=== PATIENT | female | born 1935 | race Caucasian/White ===

== ENCOUNTER 2016-07-03 09:56 | Inpatient (IN) ==
[2016-07-03] MEDS ORDERED: D50W SYRINGE IV PRN (12:11)
--- NOTE | 2016-07-03 13:18 | EKG Report ---
Test Performed on : 07/03/2016 1:01:27 PM Test Reason : dehydration Blood Pressure : / mmHG Vent. Rate : 068 BPM Atrial Rate : 068 BPM P-R Int : 000 ms QRS Dur : 138 ms QT Int : 482 ms P-R-T Axes : 000 090 030 degrees QTc Int : 512 ms Normal sinus rhythm. with marked sinus arrhythmia. Rightward axis Nonspecific intraventricular block Abnormal ECG When compared with ECG of 05-JUN-2016 13:14, sinus arrthmia not present Confirmed by Jose Cage MD ([id number]) on 07/04/2016 4:30:14 AM
[2016-07-03 13:37] LABS: MANUAL DIFF NEEDED? NO
[2016-07-03] MEDS: NS + KCL 20 MEQ 1,000 ML IV SCH (13:44)
[2016-07-03] MEDS: SODIUM CHLORIDE 0.9% INJ SCH (13:44)
[2016-07-03] MEDS: PROTONIX IV SCH (13:44)
[2016-07-03 13:49] LABS: BASO% 0.1 % (0.0-0.8); EOS# 0.03 X1000 (0.0-0.7); EOS% 0.3 % (0.0-10.0); HEMATOCRIT 39.3 % (37.0-47.0); HEMOGLOBIN 12.6 g/dL (12.0-16.0); IMM GRAN# 0.02 X1000 (0.0-0.04); IMM GRAN% 0.2 % (0.0-0.5); LYMPH# 3.05 X1000 (1.2-3.4); LYMPH% 31.3 % (20.5-51.1); MCH 27.5 PG (27-31); MCHC 32.1 g/dL (33-37); MCV 85.6 FL (81-99); MONO# 0.71 X1000 (0.11-0.59); MONO% 7.3 % (1.7-9.3); MPV 10.6 FL (7.4-10.4); NEUT% 60.8 % (42.2-75.2); PLT 261 X1000 (130-400); RBC 4.59 XMIL (4.2-5.4)
[2016-07-03 13:59] LABS: INR 1.11; PROTIME 11.7 Seconds (9.2-11.7)
[2016-07-03 14:00] LABS: PTT HEPARIN PROTOCOL 26.3 Seconds
[2016-07-03 14:09] LABS: ALBUMIN 4.2 g/dL (3.5-5.0); POTASSIUM 3.7 mmol/L (3.5-5.1); TOTAL BILIRUBIN 0.46 mg/dL (0.20-1.00); TOTAL PROTEIN 7.1 g/dL (6.3-8.3)
--- NOTE | 2016-07-03 16:07 | Diag Imaging Result Document ---
PROCEDURE NAME: ABDOMEN FLAT/UPRIGHT - 07/03/2016 SUPINE AND UPRIGHT ABDOMEN: FINDINGS: Compared with 05/19/2013. The bowel gas pattern appears nonspecific and nonobstructive. The right hemidiaphragm is not entirely included on the upright view but there is no obvious free air seen. There are surgical clips at the right upper quadrant. IMPRESSION: Nonspecific bowel gas pattern.
[2016-07-03] MEDS: LEVEMIR SUBQ SCH (16:32)
[2016-07-03] MEDS: HUMALOG SUBQ SCH ×2 (16:33→21:22)
--- NOTE | 2016-07-03 17:12 | HISTORY AND PHYSICAL ---
CHIEF COMPLAINT: Diarrhea and weakness. HISTORY OF PRESENT ILLNESS: Ms. Shaffer is an 81-year-old white female patient, not doing well the last 3 to 4 days, complaining of diarrhea multiple times, watery stool. No blood or mucus in it. The patient claimed every time she eats she has a bowel movement. The patient was feeling weak. She was getting dizzy when she tries to get up. The patient does have longstanding diabetes complicated by neuropathy. The patient had an episode of hypoglycemia. I did cut back her insulin. Still the patient's blood sugar was staying low. The patient came to the office for evaluation. The patient has lost about 9 pounds of weight. I evaluated the patient. The patient is high risk for hypoglycemia with fall. Clinically, the patient did have clinical dehydration, and I decided to admit her for further care. The patient claims to be nervous, anxious, and weak. The patient had some chills, but no fever, and had a mild cough with expectoration. The patient did have nausea, but no vomiting. No typical chest pain. Occasional palpitations. No abdominal distention. No dysuria or hematuria. No vaginal discharge, spotting, bleeding. Nobody else in the family is sick with similar illness. The patient was anxious and nervous. The patient's son was in correction, and he came out and was asking the patient for money and bothering her, which was making her nervous, but that son is back in the correction now. The patient does have chronic low back pain, being followed up by the Pain [facility], on pain medication. The patient did not run out of her pain medication. No vaginal discharge, spotting, bleeding. No leg swelling. No further history available at this time. ALLERGIES: The patient is allergic to meperidine. HOME MEDICATIONS: Her home medications include, the patient is on Xanax, Eliquis, Invokana, Lexapro, Lasix, Neurontin, Davin, NovoLog, Levemir, Synthroid, Cozaar, beta-galdino, Robaxin, Prilosec, Mirapex. PAST MEDICAL HISTORY: Restless legs syndrome, gastritis, hypertension, chronic low back pain, hypothyroidism, insulin-dependent diabetes mellitus, peripheral neuropathy, situational depression, anxiety, paroxysmal atrial fibrillation, cirrhosis of the liver. PERSONAL HISTORY: Single. Nonsmoker. Denied alcohol or substance abuse. FAMILY HISTORY: Noncontributory. PHYSICAL EXAMINATION: GENERAL: An elderly white female patient, in mild distress. VITAL SIGNS: Blood pressure 148/59, pulse 82, respiration 18, temperature 98.4 degrees. SKIN: Senile turgor. HEENT: Head atraumatic, normocephalic. [place] conjunctivae. Anicteric sclerae. Extraocular muscle movement normal. Fundus cannot be penetrated. Good oral hygiene. Dry oral mucosa. No tonsillopharyngeal congestion. Ears and nose benign. NECK: Supple. No JVD, thyromegaly, or lymphadenopathy. CHEST: Bilateral good air entry present. No rales or rhonchi. CARDIOVASCULAR: S1 and S2 heard. A 2/6 systolic murmur at the apex. No gallop or thrill. ABDOMEN: Soft, globular. Bowel sounds present. Nontender. EXTREMITIES: No cyanosis, clubbing. No acute DVT. CENTRAL NERVOUS SYSTEM: Alert, awake, able to move all 4 limbs. LABORATORY DATA: Revealed hemoglobin 12.6, hematocrit 39.3, platelet count 261,000, WBC count 9.76. PT and PTT normal. Blood sugar was 210. TSH 5.4. Amylase and lipase were normal. CONSIDERATIONS: The patient admitted with: 1. Severe diarrhea. 2. Clinical dehydration. 3. Diabetes mellitus. 4. She does have hypertension. 5. Hyperlipidemia. 6. Gastritis and reflux disease. 7. Chronic low back pain. 8. Anxiety. 9. She does have a history suggestive of cirrhosis of the liver. 10. Gastroparesis. PLAN: Admit the patient. IV hydration. GI prophylaxis. As the patient is on Eliquis for atrial fibrillation, I am going to stop Lovenox. Empirically, I am going to start the patient on Flagyl after we collect the stool specimen. Fall precaution. The patient was getting dizzy even when I tried to sit her up on the examination table in my office. The overall plan was discussed at length with the patient, and she is in agreement. Watch her for hypoglycemia and fluid overload. Her abdominal x-ray results reviewed. cc: Damon Jennings MD
[2016-07-03] MEDS: MIRAPEX PO SCH (18:06)
[2016-07-03] MEDS: ZOFRAN IV PRN (18:27)
[2016-07-03] MEDS: NORCO-7.5 PO PRN (20:43)
[2016-07-03] MEDS: NEURONTIN PO SCH (20:43)
[2016-07-03] MEDS: ELIQUIS PO SCH (20:43)
[2016-07-03] MEDS: ROBAXIN PO SCH (20:43)
[2016-07-04] MEDS: NS + KCL 20 MEQ 1,000 ML IV SCH ×3 (00:37→22:25)
[2016-07-04] MEDS: NORCO-7.5 PO PRN ×3 (02:23→22:26)
[2016-07-04 05:48] LABS: MANUAL DIFF NEEDED? NO
[2016-07-04 05:51] LABS: BASO% 0.1 % (0.0-0.8); EOS# 0.02 X1000 (0.0-0.7); EOS% 0.3 % (0.0-10.0); HEMATOCRIT 37.7 % (37.0-47.0); HEMOGLOBIN 11.7 g/dL (12.0-16.0); IMM GRAN# 0.02 X1000 (0.0-0.04); IMM GRAN% 0.3 % (0.0-0.5); LYMPH# 2.64 X1000 (1.2-3.4); LYMPH% 35.5 % (20.5-51.1); MCV 86.9 FL (81-99); MONO# 0.51 X1000 (0.11-0.59); MONO% 6.9 % (1.7-9.3); MPV 10.2 FL (7.4-10.4); NEUT% 56.9 % (42.2-75.2); PLT 246 X1000 (130-400); RBC 4.34 XMIL (4.2-5.4)
[2016-07-04] MEDS: XANAX PO PRN ×3 (05:53→22:27)
[2016-07-04 06:07] LABS: AGAP 10; ALBUMIN 3.7 g/dL (3.5-5.0); ALKALINE PHOSPHATASE 235 U/L (32-104); BUN 11 mg/dL (8-22); CALCIUM 8.2 mg/dL (8.8-10.2); CHLORIDE 106 mmol/L (98-107); COSMO 287; GOT 40 U/L (10-30); GPT 19 U/L (10-36); POTASSIUM 4.3 mmol/L (3.5-5.1); SODIUM 142 mmol/L (136-145); TCO2 26 mmol/L (25-35); TOTAL BILIRUBIN 0.36 mg/dL (0.20-1.00); TOTAL PROTEIN 6.7 g/dL (6.3-8.3)
[2016-07-04 06:08] LABS: HEMOGLOBIN A1C 7.4 % (4.8-6.0)
[2016-07-04] MEDS: HUMALOG SUBQ SCH ×4 (06:23→22:41)
[2016-07-04] MEDS: ZOFRAN IV PRN (06:25)
[2016-07-04 06:47] LABS: FREE T4 1.35 ng/dL (0.93-1.70)
[2016-07-04 07:05] LABS: URINE SOURCE CLEAN CATCH
[2016-07-04 07:08] LABS: BILIRUBIN URINE NEGATIVE (NEGATIVE); BLOOD URINE NEGATIVE (NEGATIVE); COLOR YELLOW; GLUCOSE URINE TRACE mg/dL (NEGATIVE); LEUKOCYTES URINE SMALL (NEGATIVE); NITRITE URINE NEGATIVE (NEGATIVE); PROTEIN URINE 50 mg/dL (NEGATIVE); SP GRAVITY URINE 1.034; TURBIDITY URINE HAZY (CLEAR); UROBILINOGEN URINE NORMAL (NORMAL)
[2016-07-04 07:09] LABS: URINE MICRO REVIEW NEEDED? YES
[2016-07-04 07:10] LABS: UR EPITHELIAL CELLS <10 /HPF (<10); URINE BACTERIA 4+ /HPF; URINE CULTURE NEEDED? YES; URINE RBC <10 /HPF (<10)
[2016-07-04 07:17] LABS: URINE CASTS NONE SEEN; URINE CRYSTALS NONE SEEN; URINE SMALL ROUND CELLS NONE SEEN
[2016-07-04] MEDS: COZAAR PO SCH (10:02)
[2016-07-04] MEDS: ELIQUIS PO SCH ×2 (10:03→20:10)
[2016-07-04] MEDS: LEVEMIR SUBQ SCH (10:04)
[2016-07-04] MEDS: INVOKANA PO SCH (10:04)
[2016-07-04] MEDS: LEXAPRO PO SCH (10:05)
[2016-07-04] MEDS: LOVENOX SUBQ SCH (10:05)
[2016-07-04] MEDS: MIRAPEX PO SCH ×3 (10:05→16:08)
[2016-07-04] MEDS: NEURONTIN PO SCH ×2 (10:06→20:11)
[2016-07-04] MEDS: ROBAXIN PO SCH ×2 (10:08→20:10)
[2016-07-04] MEDS: SYNTHROID PO SCH (10:09)
[2016-07-04] MEDS: TOPROL XL PO SCH (10:09)
--- NOTE | 2016-07-04 10:25 | PROGRESS NOTE ---
DATE: 07/04/2016 SUBJECTIVE: Ms. Shaffer is feeling some better. The patient had 5 loose bowel movements last night. This morning she went once. She denied any high-grade fever. The patient did have some chills. Her nausea seems to be getting better. Stool workup is negative. Urinalysis did show evidence of UTI. No typical chest pain. OBJECTIVE: Vital Signs: Her vital signs are noted. The patient is afebrile. Neck: Supple. No JVD. Lungs: Bilateral good air entry present. Cardiovascular: S1 and S2 heard. Abdomen: Soft, globular. Bowel sounds present. Extremities: No cyanosis, clubbing. No acute DVT. Central Nervous System: Alert, awake, able to move all 4 limbs. LABORATORY DATA: The lab data done today, WBC count 7.44, hemoglobin 11.7, hematocrit 37.7, platelet count 246,000. Electrolytes fairly benign. LFT results reviewed. Urinalysis did show leukocyte small, 10 to 20 WBCs, and 4+ bacteria suggestive of UTI. I am going to start the patient on Levaquin. Stool workup negative. TSH and free T4 results reviewed. CONSIDERATIONS: 1. Urinary tract infection. 2. Gastroenteritis. 3. Clinical dehydration. 4. Diabetes mellitus. PLAN: Her Accu-Chek results reviewed. Hemoglobin A1c was 7.4. I am going to advance diet and continue the rest of the treatment and close observation. cc: Damon Jennings MD
[2016-07-04] MEDS: QUESTRAN LIGHT PO SCH ×2 (11:40→20:10)
[2016-07-04] MEDS: ROCEPHIN 1 GM/NS 1 GM/50 ML IVPB IV SCH (11:40)
[2016-07-04] MEDS: PROTONIX IV SCH (12:01)
[2016-07-04] MEDS: SODIUM CHLORIDE 0.9% INJ SCH (12:02)
[2016-07-05] MEDS: NORCO-7.5 PO PRN ×3 (04:34→22:18)
[2016-07-05] MEDS: NS + KCL 20 MEQ 1,000 ML IV SCH ×2 (05:36→17:46)
[2016-07-05] MEDS: LOVENOX SUBQ SCH (05:42)
[2016-07-05 06:00] LABS: MANUAL DIFF NEEDED? NO
[2016-07-05 06:03] LABS: BASO% 0.1 % (0.0-0.8); EOS# 0.08 X1000 (0.0-0.7); EOS% 0.9 % (0.0-10.0); HEMATOCRIT 36.6 % (37.0-47.0); HEMOGLOBIN 11.1 g/dL (12.0-16.0); LYMPH# 2.15 X1000 (1.2-3.4); LYMPH% 23.8 % (20.5-51.1); MCH 26.8 PG (27-31); MCHC 30.3 g/dL (33-37); MCV 88.4 FL (81-99); MONO# 0.56 X1000 (0.11-0.59); MONO% 6.2 % (1.7-9.3); MPV 10.2 FL (7.4-10.4); PLT 222 X1000 (130-400); RBC 4.14 XMIL (4.2-5.4)
[2016-07-05 06:30] LABS: AGAP 7; ALBUMIN 3.5 g/dL (3.5-5.0); ALKALINE PHOSPHATASE 225 U/L (32-104); BUN 9 mg/dL (8-22); CALCIUM 8.3 mg/dL (8.8-10.2); CHLORIDE 109 mmol/L (98-107); COSMO 281; GOT 29 U/L (10-30); GPT 19 U/L (10-36); POTASSIUM 4.5 mmol/L (3.5-5.1); SODIUM 141 mmol/L (136-145); TCO2 25 mmol/L (25-35); TOTAL BILIRUBIN 0.21 mg/dL (0.20-1.00); TOTAL PROTEIN 6.1 g/dL (6.3-8.3)
[2016-07-05] MEDS: HUMALOG SUBQ SCH ×4 (06:46→22:24)
[2016-07-05] MEDS ORDERED: INSULIN PEN NEEDLES ONE (07:30)
--- NOTE | 2016-07-05 07:34 | PROGRESS NOTE ---
DATE: 07/05/2016 SUBJECTIVE: Mr. Shaffer is doing better. Her diarrhea is getting better. She does feel hungry. No nausea or vomiting. No chest pain. The patient seems to be getting stronger. Her blood sugar is doing better. OBJECTIVE: Vital Signs: Reviewed. Lungs: Bilateral good air entry present. Cardiovascular: S1 and S2 heard. Abdomen: Soft, globular. Bowel sounds present. Extremities: No cyanosis, clubbing. No acute DVT. ONCOLOGY NAVIGATOR: Alert, awake. Able to move all 4 limbs. Lab Data: Done today. Electrolytes fairly benign. CBC result also reviewed. CONSIDERATION: 1. Gastroenteritis. Her diet is improving. I started her on Questran Light. 2. Urinary tract infection. Patient is on Rocephin. Culture is pending. 3. Diabetes mellitus. 4. Hypertension. 5. Hypothyroidism. TSH and free T4 results reviewed. 6. Chronic arthritic pain, on pain medicine and muscle relaxer. PLAN: We will continue current treatment. Advance her diet. Ambulate the patient with assistance. If clinical condition permits, we will plan discharging patient home soon. The patient is on anticoagulation for paroxysmal atrial fibrillation. cc: Damon Jennings MD
[2016-07-05] MEDS: ZOFRAN IV PRN ×2 (08:18→21:50)
[2016-07-05] MEDS: QUESTRAN LIGHT PO SCH ×2 (08:24→22:21)
[2016-07-05] MEDS: ROBAXIN PO SCH ×2 (08:25→22:18)
[2016-07-05] MEDS: LEVEMIR SUBQ SCH (08:25)
[2016-07-05] MEDS: COZAAR PO SCH (08:26)
[2016-07-05] MEDS: ELIQUIS PO SCH ×2 (08:26→22:18)
[2016-07-05] MEDS: MIRAPEX PO SCH ×3 (08:27→17:47)
[2016-07-05] MEDS: NEURONTIN PO SCH ×2 (08:27→22:18)
[2016-07-05] MEDS: INVOKANA PO SCH (08:27)
[2016-07-05] MEDS: SYNTHROID PO SCH (08:27)
[2016-07-05] MEDS: LEXAPRO PO SCH (08:28)
[2016-07-05] MEDS: TOPROL XL PO SCH (08:28)
[2016-07-05] MEDS: XANAX PO PRN ×3 (08:53→22:18)
[2016-07-05] MEDS: ROCEPHIN 1 GM/NS 1 GM/50 ML IVPB IV SCH (09:10)
[2016-07-05] MEDS: SODIUM CHLORIDE 0.9% INJ SCH (13:06)
[2016-07-05] MEDS: PROTONIX IV SCH (13:06)
[2016-07-06] MEDS: NORCO-7.5 PO PRN ×3 (04:38→17:16)
[2016-07-06] MEDS: LOVENOX SUBQ SCH ×2 (04:38→06:52)
[2016-07-06] MEDS: XANAX PO PRN ×2 (04:42→17:16)
[2016-07-06] MEDS ORDERED: LASIX IV ONE (06:35)
--- NOTE | 2016-07-06 07:08 | PROGRESS NOTE ---
DATE: 07/06/2016 SUBJECTIVE: Ms. Shaffer is doing fair. The patient was very nervous, anxious, and had a panic attack last night. They had to call her daughter to stay with her. The patient had chest pain and palpitations. The patient was very nervous and crying. Her chest pain was more atypical. The patient claims she feels bloated. I am going to stop her Questran Light. She denied any fever or chills. Urine culture grew more than 100,000 colony count of bacteria. I do not have sensitivity and identification of the bacteria. I did discuss with the family and patient about geropsychiatric evaluation. I am going to make sure and check appropriate lab and EKG before I get geropsychiatric evaluation. OBJECTIVE: Vital signs: Noted. General: The patient does look anxious. Neck: Supple. No JVD. Lungs: Bilateral good air entry present. CVS: S1 and S2 heard. Abdomen: Soft, globular. Bowel sounds present. HIDE OR SKIN BUFFER: Alert, awake. Able to move all 4 limbs. LABORATORY: Lab done yesterday noted. ASSESSMENT AND PLAN: I am going to check blood work including cardiac isoenzymes and EKG today. Close observation. Overall plan, I already stopped her Questran Light. cc: Damon Jennings MD
--- NOTE | 2016-07-06 07:13 | EKG Report ---
Test Performed on : 07/06/2016 06:50:56 AM Test Reason : CP Blood Pressure : / mmHG Vent. Rate : 072 BPM Atrial Rate : 072 BPM P-R Int : 168 ms QRS Dur : 128 ms QT Int : 448 ms P-R-T Axes : 000 088 041 degrees QTc Int : 490 ms Sinus rhythm. with premature atrial complexes. in a pattern of bigeminy. Nonspecific intraventricular block Cannot rule out Anterior infarct , age undetermined Abnormal ECG When compared with ECG of 03-JUL-2016 13:01, premature atrial complexes. are now present Confirmed by Jose Cage MD ([id number]) on 07/06/2016 11:25:07 AM
[2016-07-06 07:21] LABS: MANUAL DIFF NEEDED? NO
[2016-07-06 07:22] LABS: BASO% 0.1 % (0.0-0.8); EOS# 0.01 X1000 (0.0-0.7); EOS% 0.1 % (0.0-10.0); HEMATOCRIT 35.1 % (37.0-47.0); HEMOGLOBIN 10.8 g/dL (12.0-16.0); IMM GRAN# 0.03 X1000 (0.0-0.04); IMM GRAN% 0.3 % (0.0-0.5); LYMPH# 1.76 X1000 (1.2-3.4); LYMPH% 18.5 % (20.5-51.1); MCH 27.1 PG (27-31); MCHC 30.8 g/dL (33-37); MONO# 0.65 X1000 (0.11-0.59); MONO% 6.8 % (1.7-9.3); MPV 9.9 FL (7.4-10.4); NEUT% 74.2 % (42.2-75.2); PLT 205 X1000 (130-400); RBC 3.99 XMIL (4.2-5.4)
[2016-07-06 07:53] LABS: AGAP 10; ALBUMIN 3.7 g/dL (3.5-5.0); ALKALINE PHOSPHATASE 227 U/L (32-104); BUN 8 mg/dL (8-22); CALCIUM 8.6 mg/dL (8.8-10.2); CHLORIDE 109 mmol/L (98-107); CK PROFILE 70 U/L (24-173); COSMO 278; GOT 20 U/L (10-30); GPT 16 U/L (10-36); POTASSIUM 4.9 mmol/L (3.5-5.1); SODIUM 140 mmol/L (136-145); TCO2 21 mmol/L (25-35); TOTAL PROTEIN 6.9 g/dL (6.3-8.3)
--- NOTE | 2016-07-06 07:55 | Diag Imaging Result Document ---
PROCEDURE NAME: CHEST-PORTABLE - 07/06/2016 PORTABLE CHEST X-RAY, 07/06/2016: COMPARISON: 06/05/2016. FINDINGS: There is mild cardiomegaly. Pulmonary vascularity is distended. There are central and bibasilar infiltrates. No pneumothorax or large effusion. IMPRESSION: Probable pulmonary edema.
[2016-07-06] MEDS: ZOFRAN IV PRN ×3 (08:02→21:08)
[2016-07-06] MEDS: NS + KCL 20 MEQ 1,000 ML IV SCH ×2 (08:06→14:57)
[2016-07-06] MEDS: ELIQUIS PO SCH ×2 (08:54→21:08)
[2016-07-06] MEDS: ROBAXIN PO SCH ×2 (08:55→21:08)
[2016-07-06] MEDS: SYNTHROID PO SCH (08:55)
[2016-07-06] MEDS: LEXAPRO PO SCH (08:55)
[2016-07-06] MEDS: MIRAPEX PO SCH ×3 (08:55→17:16)
[2016-07-06] MEDS: INVOKANA PO SCH (08:55)
[2016-07-06] MEDS: TOPROL XL PO SCH (08:59)
[2016-07-06] MEDS: NEURONTIN PO SCH ×2 (09:00→21:08)
[2016-07-06] MEDS: COZAAR PO SCH (09:01)
[2016-07-06] MEDS: LEVEMIR SUBQ SCH (09:01)
[2016-07-06] MEDS: ROCEPHIN 1 GM/NS 1 GM/50 ML IVPB IV SCH (09:02)
[2016-07-06] MEDS: HUMALOG SUBQ SCH ×4 (09:13→21:59)
[2016-07-06] MEDS: PROTONIX IV SCH (12:24)
[2016-07-06] MEDS: SODIUM CHLORIDE 0.9% INJ SCH (12:24)
[2016-07-06] MEDS ORDERED: TYLENOL PO PRN (21:25)
[2016-07-07] MEDS: NORCO-7.5 PO PRN ×3 (01:40→18:06)
[2016-07-07] MEDS: ZOFRAN IV PRN ×3 (02:35→18:06)
[2016-07-07] MEDS ORDERED: LASIX IV ONE (06:25)
[2016-07-07] MEDS: HUMALOG SUBQ SCH ×4 (06:27→21:00)
[2016-07-07] MEDS: LOVENOX SUBQ SCH (06:35)
--- NOTE | 2016-07-07 07:05 | PROGRESS NOTE ---
DATE: 07/07/2016 SUBJECTIVE: Ms. Shaffer is doing fair. The patient is still complaining of being nauseous. She denied any high-grade fever or chills. She does have some sinus drainage and postnasal drip. Urine culture results reviewed, which grew Escherichia coli sensitive to Rocephin. The patient does have longstanding diabetes. I entertained the possibility of diabetic gastroparesis. I started her on Reglan. We will watch her for extrapyramidal side effect. The patient does not want to consider going to geriatric psychiatric unit. OBJECTIVE: Vital Signs: Her vital signs were reviewed. Lungs: Bilateral good air entry present, few basal crepitations. Cardiovascular: S1 and S2 heard. Abdomen: Soft and nontender. Bowel sounds present. Extremities: No cyanosis, clubbing. No acute DVT. Central Nervous System: Alert, awake, able to move all 4 limbs. CONSIDERATIONS: The patient's problems include: 1. Urinary tract infection due to Escherichia coli. 2. The patient did have pulmonary edema due to fluid overload. I gave her some Lasix yesterday and gave her 20 more mg IV today. 3. Nausea and gastroparesis. We will try some Reglan for symptomatic relief. 4. Diabetes mellitus. 5. Hypertension. 6. Her rhinitis, I am going to treat her with Astelin nose spray. 7. Continue the rest of the treatment. Ambulation out of bed to chair, and once her nausea improves, we will plan on discharging the patient home soon. cc: Damon Jennings MD
[2016-07-07] MEDS: REGLAN PO SCH ×3 (07:22→16:03)
[2016-07-07] MEDS: TOPROL XL PO SCH (08:26)
[2016-07-07] MEDS: INVOKANA PO SCH (08:26)
[2016-07-07] MEDS: LEXAPRO PO SCH (08:26)
[2016-07-07] MEDS: NEURONTIN PO SCH ×2 (08:27→20:21)
[2016-07-07] MEDS: ELIQUIS PO SCH ×2 (08:27→20:20)
[2016-07-07] MEDS: ROBAXIN PO SCH ×2 (08:27→20:21)
[2016-07-07] MEDS: MIRAPEX PO SCH ×3 (08:27→16:03)
[2016-07-07] MEDS: SYNTHROID PO SCH (08:28)
[2016-07-07] MEDS: COZAAR PO SCH (08:28)
[2016-07-07] MEDS: LEVEMIR SUBQ SCH (08:29)
[2016-07-07] MEDS: ROCEPHIN 1 GM/NS 1 GM/50 ML IVPB IV SCH (10:00)
[2016-07-07] MEDS: XANAX PO PRN ×3 (11:42→21:37)
[2016-07-07] MEDS: SODIUM CHLORIDE 0.9% INJ SCH (12:15)
[2016-07-07] MEDS: PROTONIX IV SCH (12:15)
[2016-07-07] MEDS ORDERED: AMBIEN PO PRN (16:56)
[2016-07-08 05:29] LABS: MANUAL DIFF NEEDED? NO
[2016-07-08] MEDS: SODIUM CHLORIDE 0.9% INJ SCH ×2 (05:29→12:34)
[2016-07-08] MEDS: REGLAN PO SCH (05:29)
[2016-07-08] MEDS: ZOFRAN IV PRN (05:29)
[2016-07-08 05:30] LABS: BASO% 0.1 % (0.0-0.8); EOS# 0.07 X1000 (0.0-0.7); EOS% 0.6 % (0.0-10.0); HEMATOCRIT 36.9 % (37.0-47.0); HEMOGLOBIN 11.7 g/dL (12.0-16.0); IMM GRAN# 0.03 X1000 (0.0-0.04); IMM GRAN% 0.3 % (0.0-0.5); LYMPH# 2.61 X1000 (1.2-3.4); LYMPH% 22.8 % (20.5-51.1); MCH 27.1 PG (27-31); MCHC 31.7 g/dL (33-37); MCV 85.6 FL (81-99); MONO# 0.81 X1000 (0.11-0.59); MONO% 7.1 % (1.7-9.3); MPV 10.7 FL (7.4-10.4); NEUT% 69.1 % (42.2-75.2); PLT 229 X1000 (130-400); RBC 4.31 XMIL (4.2-5.4)
[2016-07-08 05:49] LABS: AGAP 15; ALKALINE PHOSPHATASE 234 U/L (32-104); BUN 9 mg/dL (8-22); CHLORIDE 99 mmol/L (98-107); COSMO 279; GOT 20 U/L (10-30); GPT 16 U/L (10-36); POTASSIUM 4.2 mmol/L (3.5-5.1); SODIUM 139 mmol/L (136-145); TCO2 25 mmol/L (25-35); TOTAL BILIRUBIN 0.36 mg/dL (0.20-1.00); TOTAL PROTEIN 7.3 g/dL (6.3-8.3)
[2016-07-08] MEDS: LOVENOX SUBQ SCH (06:48)
--- NOTE | 2016-07-08 07:07 | PROGRESS NOTE ---
DATE: 07/08/2016 SUBJECTIVE: Ms. Shaffer is doing better. Not doing well. She does have anxiety and panic attacks. The patient claims she was not sleeping well. I gave her Ambien. Patient did not sleep well after 1:00. She was very nervous and anxious. We had to call her daughter to sit with her. Patient was panicky and restless. Complaining of vague chest pain. This morning, the patient had diarrhea. No vomiting. The patient does have anxiety. Patient had significant depression. She was on Abilify a few years ago. She was doing better but the patient stopped taking it as she did well. Lately, her problem more related to her anxiety and depression and panic attacks. Her UTI is getting better. Her lab data is satisfactory. I am going to get her stool workup done today. I did discuss with the patient and daughter about a geropsychiatric evaluation and also long-term. They are in agreement. I think patient will be benefited more with geropsychiatric evaluation and treatment. PHYSICAL EXAMINATION: Vital Signs: Her vital signs noted. Neck: Supple. No JVD. Lungs: Bilateral good air entry present. CVS: S1 and S2 heard. Abdomen: Soft, globular. Bowel sounds present. HAIR BLENDER: Alert, awake. Able to move all 4 limbs. ASSESSMENT AND PLAN: Yesterday, I started her on Reglan for gastroparesis which I am going to stop. We will check cardiac isoenzymes, and TSH and free T4 again. Patient is ready to be discharged to a geropsychiatric unit if they accept her today. Her problems include: 1. Urinary tract infection, clinically doing better. 2. Hypertension. 3. Diabetes mellitus. 4. Hypothyroidism. 5. Gastritis. 6. Paroxysmal atrial fibrillation. cc: Damon Jennings MD
[2016-07-08 08:03] LABS: AGAP 17; ALBUMIN 3.7 g/dL (3.5-5.0); ALKALINE PHOSPHATASE 228 U/L (32-104); BUN 9 mg/dL (8-22); CHLORIDE 100 mmol/L (98-107); COSMO 278; GOT 20 U/L (10-30); GPT 14 U/L (10-36); SODIUM 138 mmol/L (136-145); TCO2 21 mmol/L (25-35); TOTAL PROTEIN 7.1 g/dL (6.3-8.3)
[2016-07-08] MEDS: HUMALOG SUBQ SCH ×4 (08:14→22:50)
[2016-07-08] MEDS: ROCEPHIN 1 GM/NS 1 GM/50 ML IVPB IV SCH (09:22)
[2016-07-08] MEDS: ELIQUIS PO SCH ×2 (09:22→20:36)
[2016-07-08] MEDS: LEXAPRO PO SCH (09:22)
[2016-07-08] MEDS: COZAAR PO SCH (09:22)
[2016-07-08] MEDS: MIRAPEX PO SCH ×3 (09:22→20:35)
[2016-07-08] MEDS: SEROQUEL PO SCH ×2 (09:23→20:35)
[2016-07-08] MEDS: ROBAXIN PO SCH ×2 (09:23→20:36)
[2016-07-08] MEDS: NEURONTIN PO SCH ×2 (09:23→20:35)
[2016-07-08] MEDS: TOPROL XL PO SCH (09:23)
[2016-07-08] MEDS: INVOKANA PO SCH (09:24)
[2016-07-08] MEDS: LEVEMIR SUBQ SCH (09:25)
[2016-07-08] MEDS: SYNTHROID PO SCH (09:26)
[2016-07-08] MEDS: ATROVENT 0.06% NASAL SPRAY NAS SCH ×3 (09:29→17:33)
[2016-07-08 09:38] LABS: FREE T4 1.58 ng/dL (0.93-1.70)
[2016-07-08] MEDS: PROTONIX IV SCH (12:34)
[2016-07-08] MEDS: AYR NASAL SPRAY NAS PRN (12:36)
[2016-07-08] MEDS: XANAX PO PRN ×2 (14:39→20:50)
[2016-07-08] MEDS: NORCO-7.5 PO PRN ×3 (14:39→20:47)
[2016-07-09] MEDS: AYR NASAL SPRAY NAS PRN (00:21)
[2016-07-09] MEDS: NORCO-7.5 PO PRN (05:44)
[2016-07-09] MEDS: HUMALOG SUBQ SCH ×2 (06:44→11:57)
[2016-07-09 07:56] VITALS: BP 187/60
[2016-07-09] MEDS: ROCEPHIN 1 GM/NS 1 GM/50 ML IVPB IV SCH (09:44)
[2016-07-09] MEDS: ATROVENT 0.06% NASAL SPRAY NAS SCH (09:45)
[2016-07-09] MEDS: NEURONTIN PO SCH (09:46)
[2016-07-09] MEDS: INVOKANA PO SCH (09:46)
[2016-07-09] MEDS: ROBAXIN PO SCH (09:46)
[2016-07-09] MEDS: SEROQUEL PO SCH (09:46)
[2016-07-09] MEDS: LEXAPRO PO SCH (09:46)
[2016-07-09] MEDS: TOPROL XL PO SCH (09:46)
[2016-07-09] MEDS: ELIQUIS PO SCH (09:46)
[2016-07-09] MEDS: SYNTHROID PO SCH (09:47)
[2016-07-09] MEDS: COZAAR PO SCH (09:47)
[2016-07-09] MEDS: MIRAPEX PO SCH (09:47)
[2016-07-09] MEDS: LEVEMIR SUBQ SCH (10:07)
[2016-07-09] MEDS: XANAX PO PRN (10:07)
--- NOTE | 2016-07-09 10:28 | DISCHARGE SUMMARY ---
ADMISSION DATE: 07/03/2016 DISCHARGE DATE: FINAL DISCHARGE DIAGNOSIS: 1. Urinary tract infection. 2. Delirium. 3. Anxiety and panic attack. 4. Uncontrolled diabetes mellitus. 5. Hypertension. 6. Mild dementia. 7. Hypothyroidism. 8. Chronic pain. 9. Gastritis and reflux disease. 10. Paroxysmal atrial fibrillation. 11. Muscle spasm. 12. History suggestive of Parkinson's disease. HOSPITAL COURSE: Ms. Shaffer is an 81-year-old, white, female patient admitted with intractable nausea, vomiting, and diarrhea not responding to her conservative treatment. The patient was not able to keep anything by mouth. The patient was getting weaker. She did have clinical dehydration. I admitted the patient. Started her on IV fluid and symptomatic treatment. Her clinical condition improved slowly. Hospital course complicated by significant diarrhea. I did check stool for C difficile toxin twice too and those were negative. We treated her nausea symptomatically. The patient was started on Reglan but it was making her more shaky and I stopped the Reglan. The patient was nervous and anxious. I did geropsychiatric consult. They did not accept the patient. They recommended outpatient consultation. The patient was found to have UTI which we treated with Rocephin. Patient had E. coli UTI and it was sensitive. Overall, patient is doing better, though patient is weak. She still has, at times, anxiety and panic attacks. I think patient will be benefited from short-term rehab where I can adjust her medication. She is responding well to Seroquel. Discussed with patient and daughter, and they are in agreement. PHYSICAL EXAMINATION: Vital Signs: Her vital signs noted. Neck: Supple. No JVD. Lungs: Bilateral good air entry present. CVS: S1 and S2 heard. Abdomen: Soft, globular. Bowel sounds present. HYDROGRAPHIC ENGINEER: Alert, awake. Able to move all 4 limbs. LAB DATA: Done yesterday, WBC count 11.46, hemoglobin 11.7, hematocrit 36.9, platelet count 229,000. Electrolytes were fairly benign. I did check ammonia level which was normal. Cardiac isoenzymes were normal. TSH 7.59, free T4 1.58. Urine culture grew Escherichia coli. Her chest x-ray done July 06 revealed probable pulmonary edema. DISPOSITION: The patient was given IV Lasix. Overall, she received maximum benefit of hospitalization. We will discharge her to rehab. Currently, she is on a much lower dose of her insulin than her home dose. She may need further increase in the dose of her insulin. We will monitor patient for fall, hypoglycemia. cc: Damon Jennings MD
[2016-07-09] MEDS: SODIUM CHLORIDE 0.9% INJ SCH (11:57)
[2016-07-09] MEDS: PROTONIX IV SCH (11:57)
--- NOTE | 2016-07-16 13:47 | DISCHARGE SUMMARY ---
ADMISSION DATE: 07/03/2016 DISCHARGE DATE: 07/09/2016 DISCHARGE SUMMARY ADDENDUM: Pulmonary edema most likely due to fluid overload treated with IV Lasix. The patient responded very well. cc: Damon Jennings MD
== END 2016-07-09 12:30 ==
LOC: DIRADM 09:56 → 4N 11:20
PROVIDERS: ADMIT Internal Medicine; ATTEND Internal Medicine

== ENCOUNTER 2018-03-04 09:53 | Inpatient (IN) ==
[2018-03-04] MEDS ORDERED: D50W SYRINGE IV PRN (11:04)
--- NOTE | 2018-03-04 11:39 | Diag Imaging Result Doc PS360 ---
EXAM: CHEST-2 VIEWS HISTORY: SOB TECHNIQUE: Chest two views COMPARISON: 07/06/2016 FINDINGS: The lungs are well expanded. The heart is not enlarged. The vessels are not distended. There are no infiltrates. No pleural effusions. Mild scoliosis. IMPRESSION: No acute abnormality. Electronically signed by Mingo Jean 03/04/2018 11:36 AM
--- NOTE | 2018-03-04 11:39 | EKG Report ---
Test Performed on : 03/04/2018 11:20:52 AM Test Reason : SOB Blood Pressure : / mmHG Vent. Rate : 068 BPM Atrial Rate : 068 BPM P-R Int : 232 ms QRS Dur : 148 ms QT Int : 466 ms P-R-T Axes : 074 -31 076 degrees QTc Int : 495 ms Sinus rhythm. with 1st degree AV block. Left axis deviation Left bundle branch block Abnormal ECG When compared with ECG of 06-JUL-2016 06:50, premature atrial complexes. are no longer present DE interval has increased QRS axis shifted left Confirmed by Kim MILLER, Kole Davidson ([id number]) on 03/05/2018 8:42:59 AM
[2018-03-04 11:49] LABS: BASO# 0.02 X1000 (0.0-0.2); BASO% 0.2 % (0.0-0.8); EOS# 0.06 X1000 (0.0-0.7); EOS% 0.6 % (0.0-10.0); HEMATOCRIT 43.4 % (37.0-47.0); HEMOGLOBIN 14.1 g/dL (12.0-16.0); IMM GRAN# 0.02 X1000 (0.0-0.04); IMM GRAN% 0.2 % (0.0-0.5); LYMPH# 3.12 X1000 (1.2-3.4); LYMPH% 29.4 % (20.5-51.1); MCH 28.1 PG (27-31); MCHC 32.5 g/dL (33-37); MCV 86.5 FL (81-99); MONO# 0.74 X1000 (0.11-0.59); MPV 10.8 FL (7.4-10.4); NEUT# 6.66 X1000 (1.4-6.5); NEUT% 62.6 % (42.2-75.2); PLT 190 X1000 (130-400); RBC 5.02 XMIL (4.2-5.4); RDW 14.4 % (11.5-14.5); WBC 10.62 X1000 (4.8-10.8)
[2018-03-04 11:58] LABS: ALLEN TEST YES; BE 2.5 mmoll (-3.0-3.0); BLOOD TYPE ARTERIAL; HCO3-(ACT) 26.8 mmoll (20.0-26.0); METHB 0.6 % (0.0-1.5); MODALITY CANNULA; O2(CT) 18.8 mL/dL (15.0-23.0); O2HB 93.6 % (95.0-99.0); PCO2(98.6) 30 mmHg (35-45); PO2(98.6) 67 mmHg (60-100); SAMPLE BLOOD; SAO2 95.5 % (95.0-100.0); THB 14.3 g/dL (11.5-17.4); pH(98.6) 7.52 (7.35-7.45)
[2018-03-04 12:10] LABS: INR 1.19; PROTIME 16.1 Seconds (11.0-16.0)
[2018-03-04 12:11] LABS: PTT 36.9 Seconds (22.3-41.8)
[2018-03-04 12:18] LABS: ALB/GLOB RATIO 1.2; ALBUMIN 4.1 g/dL (3.5-5.0); CALCIUM 9.4 mg/dL (8.8-10.2); MAGNESIUM 2.5 mg/dL (1.5-2.7); POTASSIUM 3.8 mmol/L (3.5-5.1); TOTAL BILIRUBIN 0.47 mg/dL (0.20-1.00); TOTAL PROTEIN 7.4 g/dL (6.3-8.3)
[2018-03-04] MEDS: ROCEPHIN 1 GM in NS 50 ML IV SCH (12:22)
[2018-03-04] MEDS: DUONEB (A & A) INH SCH ×2 (15:24→23:10)
[2018-03-04] MEDS ORDERED: NEURONTIN PO PRN (15:42)
[2018-03-04] MEDS: LEVAQUIN 500 MG/D5W 500 MG/100 ML IVPB IV SCH (17:41)
[2018-03-04] MEDS: HUMULIN R SUBQ SCH ×2 (17:42→21:29)
[2018-03-04] MEDS: MIRAPEX PO SCH (17:42)
[2018-03-04] MEDS ORDERED: SODIUM CHLORIDE 0.9% INJ PRN (20:58)
[2018-03-04] MEDS ORDERED: PHENERGAN IV PRN (20:58)
[2018-03-04] MEDS: DESYREL PO SCH (21:28)
[2018-03-04] MEDS: ZOCOR PO SCH (21:28)
[2018-03-04] MEDS: SINGULAIR PO SCH (21:28)
[2018-03-04] MEDS: ELIQUIS PO SCH (21:28)
[2018-03-04] MEDS: LEVEMIR SUBQ SCH (21:28)
--- NOTE | 2018-03-04 21:45 | HISTORY AND PHYSICAL ---
CHIEF COMPLAINT: Shortness of breath. 82-year-old white female patient, not doing well the last 3 days, complaining of increasing cough, chest congestion, wheezing, shortness of breath. The patient claims she was not able to lay flat. She also had some chills and low-grade fever. Complaining of nausea and poor oral intake. The patient came to my office. I evaluated patient, her O2 saturation on room air was low. The patient was restless. The patient also had low-grade fever. She does have underlying COPD and I decided to admit the patient for further care. The patient did have vague chest pain, some nausea but no vomiting. No typical chest pain. She did have palpitation, decreased exercise tolerance. No abdominal pain, nausea, vomiting. No diarrhea, blood, or mucus in the stool. No dysuria or hematuria. The patient does have significant back pain. The patient is going to the pain clinic. No heat or cold intolerance. No major weight loss or weight gain. Claims to be under stress worrying about her health and her breathing condition. Denied any bleeding. No focal weakness. No further history available at this time. ALLERGIES: Meperidine. HOME MEDICATIONS: Includes Pepcid, Phenergan, NovoLog, Prilosec, Eliquis, Invokana, Lexapro, trazodone, Lasix, Neurontin, [place], Levemir, Synthroid, Cozaar, metoprolol, Singulair, Mirapex, Zocor and trazodone. PAST MEDICAL HISTORY: Significant for hyperlipidemia, depression, hypothyroidism, chronic low back pain, possible cirrhosis of the liver, gastritis, peripheral neuropathy, paroxysmal atrial fibrillation. FAMILY HISTORY: Noncontributory. PERSONAL HISTORY: Single, nonsmoker. Denied alcohol or substance abuse. REVIEW OF SYSTEMS: As per HPI. FAMILY HISTORY: Noncontributory. PHYSICAL EXAMINATION: GENERAL: Elderly white female patient in mild distress. VITAL SIGNS: Blood pressure 161/52, pulse 69, respirations 22, temperature 97.9 degrees. SKIN: Senile turgor. No rash or petechiae. HEENT: Head atraumatic, normocephalic. [place] conjunctivae. Anicteric sclerae. Extraocular muscle movement normal. Fundus cannot be penetrated. Good oral hygiene. No tonsillopharyngeal congestion or exudate. Ears and nose benign. NECK: Supple. No JVD, thyromegaly or lymphadenopathy. CHEST: Bilateral good air entry present. Bibasilar crepitation. Bilateral expiratory wheezing. CARDIOVASCULAR: S1 and S2 heard. No gallop or thrill. ABDOMEN: Soft, globular. Bowel sounds present. EXTREMITIES: No cyanosis, clubbing. No acute DVT. VISITOR USE ASSISTANT: Alert, awake, able to move all 4 limbs. Tenderness lumbosacral spine. LABORATORY DATA: WBC count 10.62, hemoglobin 14.1, hematocrit 43.4, platelet count 190,000. PT and PT/INR 1.19. PTT was 36.9. Blood gas pH 7.52, pCO2 30, PO2 was 67. Electrolytes were fairly benign. Blood sugar was 191, alkaline phosphatase 318. ProBNP 183. Cardiac isoenzymes were negative. Magnesium 2.5. Chest x-ray, no acute abnormality. EKG results reviewed. CONSIDERATION: Acute asthmatic bronchitis, chronic obstructive pulmonary disease exacerbation. The patient's EKG reveal left bundle branch block. The patient does have cirrhosis of the liver, gastritis, diabetes mellitus on insulin, hypertension, hyperlipidemia. PLAN: Admit patient. IV antibiotics. Close observation. Monitor Accu-Chek. I decreased her insulin to prevent hypoglycemia. Monitor Accu-Chek, bronchodilator treatment. Overall plan discussed with patient and her daughter. They are in agreement. I will continue her pain medication prescribed by her pain clinic. cc: Damon Jennings MD
[2018-03-04] MEDS ORDERED: CALMOSEPTINE OINTMENT TOP PRN (22:58)
[2018-03-04] MEDS: NORCO-5 PO PRN (23:06)
[2018-03-05] MEDS: DUONEB (A & A) INH SCH ×4 (03:10→22:10)
[2018-03-05] MEDS: SYNTHROID PO SCH (06:22)
[2018-03-05] MEDS: HUMULIN R SUBQ SCH ×4 (06:22→22:14)
[2018-03-05] MEDS: MIRAPEX PO SCH ×3 (11:20→22:12)
[2018-03-05] MEDS: LEXAPRO PO SCH (11:21)
[2018-03-05] MEDS: ELIQUIS PO SCH ×2 (11:21→22:12)
[2018-03-05] MEDS: TOPROL XL PO SCH (11:21)
[2018-03-05] MEDS: COZAAR PO SCH (11:22)
[2018-03-05] MEDS: LASIX PO SCH (11:22)
[2018-03-05] MEDS: LEVEMIR SUBQ SCH ×2 (11:23→22:13)
--- NOTE | 2018-03-05 12:18 | PROGRESS NOTE ---
DATE: 03/05/2018 SUBJECTIVE: The patient says she is breathing much better now. She came in yesterday with bronchospasm and bronchitis. Chest x-ray was clear. OBJECTIVE: Blood pressure is 144/76, respirations 20, pulse 88, temperature 97.9 degrees Fahrenheit. HEENT: She is normocephalic. EOMS intact. PERRLA. Throat clear. Lungs have scattered wheezes and rales. Heart: Regular rate and rhythm without murmurs, gallops, or friction rubs. Abdomen soft. Active bowel sounds. No organomegaly or tenderness. Neurologic: Exam intact grossly. White count is 10,620; done yesterday. Blood gas showed a pH of 7.52, PO2 of only 67, and pCO2 of 30 yesterday. ASSESSMENT: 1. Bronchospasm. 2. Bronchitis. 3. History of atrial fibrillation now in normal sinus rhythm. PLAN: We will continue the patient's antibiotics and bronchodilators. She does seem to be doing better now. cc: MD Damon Langley Jr, MD
[2018-03-05 14:58] LABS: URINE SOURCE CLEAN CATCH
[2018-03-05 15:02] LABS: BILIRUBIN URINE NEGATIVE (NEGATIVE); BLOOD URINE NEGATIVE (NEGATIVE); COLOR YELLOW; GLUCOSE URINE 300 mg/dL (NEGATIVE); KETONE URINE TRACE mg/dL (NEGATIVE); LEUKOCYTES URINE LARGE (NEGATIVE); NITRITE URINE NEGATIVE (NEGATIVE); PROTEIN URINE TRACE mg/dL (NEGATIVE); SP GRAVITY URINE 1.007; TURBIDITY URINE CLEAR (CLEAR); UR EPITHELIAL CELLS <10 /HPF (<10); URINE BACTERIA NEGATIVE /HPF; URINE RBC <10 /HPF (<10); UROBILINOGEN URINE NORMAL (NORMAL)
[2018-03-05] MEDS: INVOKANA PO SCH (17:25)
[2018-03-05] MEDS: ROCEPHIN 1 GM in NS 50 ML IV SCH (17:30)
[2018-03-05] MEDS: LEVAQUIN 500 MG/D5W 500 MG/100 ML IVPB IV SCH (17:31)
[2018-03-05] MEDS: NORCO-5 PO PRN (22:12)
[2018-03-05] MEDS: ZOCOR PO SCH (22:12)
[2018-03-05] MEDS: SINGULAIR PO SCH (22:13)
[2018-03-05] MEDS: DESYREL PO SCH (22:13)
[2018-03-06] MEDS: DUONEB (A & A) INH SCH ×5 (03:50→22:00)
[2018-03-06] MEDS: HUMULIN R SUBQ SCH ×4 (06:13→21:05)
[2018-03-06] MEDS: SYNTHROID PO SCH (06:13)
[2018-03-06] MEDS: COZAAR PO SCH (08:25)
[2018-03-06] MEDS: LEXAPRO PO SCH (08:25)
[2018-03-06] MEDS: TOPROL XL PO SCH (08:25)
[2018-03-06] MEDS: INVOKANA PO SCH (08:25)
[2018-03-06] MEDS: MIRAPEX PO SCH ×3 (08:25→16:46)
[2018-03-06] MEDS: ELIQUIS PO SCH ×2 (08:25→21:06)
[2018-03-06] MEDS: LASIX PO SCH (08:25)
[2018-03-06] MEDS: LEVEMIR SUBQ SCH ×2 (08:26→21:05)
[2018-03-06] MEDS: NORCO-5 PO PRN ×3 (08:35→23:14)
--- NOTE | 2018-03-06 12:30 | PROGRESS NOTE ---
DATE: 03/06/2018 SUBJECTIVE: The patient says she does not feel well. I asked her why and she says she is just frustrated with not being able to breathe well and not being able to cough up the sputum. OBJECTIVE: Vital signs: Blood pressure is 98/73, respirations 18, pulse 78, temperature 98 degrees Fahrenheit. HEENT: She is normocephalic. EOMs intact. PERRLA. Throat clear. Lungs: Have scattered wheezes and rales. Heart: Regular rate and rhythm without murmurs, gallops, friction rubs. Abdomen: Soft. Active bowel sounds. No organomegaly or tenderness. Neurological: Intact grossly. LABORATORY: Sputum culture showed normal beronica. Urine culture showed no growth even though she did have pyuria. ASSESSMENT: 1. Bronchospasm. 2. Bronchitis. 3. History of atrial fibrillation, now in normal sinus rhythm. 4. Pyuria. PLAN: Continue care and I have encouraged her that it will take a little time for the medications to work. cc: MD Damon Langley Jr, MD
[2018-03-06] MEDS: SOLU-MEDROL IV SCH ×2 (12:33→21:04)
[2018-03-06] MEDS: ROCEPHIN 1 GM in NS 50 ML IV SCH (12:33)
[2018-03-06] MEDS: MUCINEX DM PO SCH ×2 (12:33→21:04)
[2018-03-06] MEDS ORDERED: INSULIN PEN NEEDLES ONE (13:02)
[2018-03-06] MEDS: LEVAQUIN 500 MG/D5W 500 MG/100 ML IVPB IV SCH (16:46)
[2018-03-06] MEDS: DESYREL PO SCH (21:04)
[2018-03-06] MEDS: SINGULAIR PO SCH (21:04)
[2018-03-06] MEDS: ZOCOR PO SCH (21:04)
[2018-03-07] MEDS: DUONEB (A & A) INH SCH ×4 (03:10→21:15)
[2018-03-07] MEDS: SOLU-MEDROL IV SCH ×3 (04:46→22:05)
[2018-03-07] MEDS: HUMULIN R SUBQ SCH ×4 (06:24→22:10)
[2018-03-07] MEDS: SYNTHROID PO SCH (06:24)
[2018-03-07] MEDS: NORCO-5 PO PRN (06:28)
--- NOTE | 2018-03-07 07:04 | PROGRESS NOTE ---
DATE: 03/07/2018 SUBJECTIVE: Ms. Shaffer is doing fair. Still complaining of cough with scanty sputum production, some wheezing. No high-grade fever or chills. Oral intake is fair. Denied any nausea or vomiting. Complaining of sore in the left nostril. No typical chest pain or palpitations. No diarrhea, blood or mucus in the stool. No major hypoglycemic episode. The patient was started on Solu-Medrol yesterday because of increasing wheezing. OBJECTIVE: Vital Signs: Her vital signs noted. Neck: Supple. No JVD. Lungs: Bilateral good air entry present. Occasional wheezing. CVS: S1 and S2 heard. Abdomen: Soft, globular. Bowel sounds present. Extremities: No cyanosis, clubbing. No acute DVT. CUT OFF MAN: Alert, awake. Able to move all 4 limbs. CONSIDERATION: 1. Acute asthmatic bronchitis. 2. Diabetes mellitus. 3. Hypertension. 4. Paroxysmal atrial fibrillation. 5. The patient is on antibiotics. I am going to increase her insulin because of steroid. 6. Gastritis and reflux disease. The patient claims to be under stress. She does have anxiety and depression. We will check appropriate labs. After reviewing labs, we will make necessary recommendations. 7. Urinalysis did reveal urinary tract infection. Urine culture was negative. PLAN: After reviewing today's labs, we will make necessary recommendations. Overall plan discussed with the patient. cc: Damon Jennings MD
[2018-03-07 07:28] LABS: BASO# 0.01 X1000 (0.0-0.2); BASO% 0.1 % (0.0-0.8); HEMATOCRIT 42.3 % (37.0-47.0); HEMOGLOBIN 13.5 g/dL (12.0-16.0); IMM GRAN# 0.05 X1000 (0.0-0.04); IMM GRAN% 0.5 % (0.0-0.5); LYMPH# 0.95 X1000 (1.2-3.4); LYMPH% 8.6 % (20.5-51.1); MCH 27.1 PG (27-31); MCHC 31.9 g/dL (33-37); MCV 84.9 FL (81-99); MONO# 0.24 X1000 (0.11-0.59); MONO% 2.2 % (1.7-9.3); MPV 11.1 FL (7.4-10.4); NEUT# 9.84 X1000 (1.4-6.5); NEUT% 88.6 % (42.2-75.2); PLT 211 X1000 (130-400); RBC 4.98 XMIL (4.2-5.4); RDW 14.2 % (11.5-14.5); WBC 11.09 X1000 (4.8-10.8)
[2018-03-07 07:41] LABS: LYMPHS 16 % (21-51); MONO 2 % (1-9); SEGS 82 % (42-75)
[2018-03-07 07:59] LABS: ALB/GLOB RATIO 1.2; ALBUMIN 4.1 g/dL (3.5-5.0); CALCIUM 9.8 mg/dL (8.8-10.2); CREATININE 1.1 mg/dL (0.5-0.9); MAGNESIUM 2.4 mg/dL (1.5-2.7); PHOSPHORUS 2.2 mg/dL (2.7-4.5); POTASSIUM 3.6 mmol/L (3.5-5.1); TOTAL BILIRUBIN 0.32 mg/dL (0.20-1.00); TOTAL PROTEIN 7.4 g/dL (6.3-8.3)
--- NOTE | 2018-03-07 08:26 | Diag Imaging Result Doc PS360 ---
EXAM: CHEST-2 VIEWS HISTORY: hypoxia TECHNIQUE: Chest two views COMPARISON: 03/04/2018 FINDINGS: The lungs are well expanded. The heart is not enlarged. The vessels are not distended. There are no infiltrates. No pleural effusions. IMPRESSION: No acute abnormality. Electronically signed by Mingo Jean 03/07/2018 8:24 AM
[2018-03-07] MEDS ORDERED: KLOR-CON PO ONE (09:00)
[2018-03-07] MEDS: MUCINEX DM PO SCH ×2 (10:17→22:04)
[2018-03-07] MEDS: MIRAPEX PO SCH ×2 (10:17→17:55)
[2018-03-07] MEDS: COZAAR PO SCH (10:17)
[2018-03-07] MEDS: TOPROL XL PO SCH (10:18)
[2018-03-07] MEDS: LASIX PO SCH (10:18)
[2018-03-07] MEDS: LEXAPRO PO SCH (10:18)
[2018-03-07] MEDS: ELIQUIS PO SCH ×2 (10:18→22:04)
[2018-03-07] MEDS: LEVEMIR SUBQ SCH ×2 (10:27→22:09)
[2018-03-07] MEDS: BACTROBAN OINTMENT TOP SCH ×2 (10:27→22:04)
[2018-03-07] MEDS: INVOKANA PO SCH (13:00)
[2018-03-07] MEDS: ROCEPHIN 1 GM in NS 50 ML IV SCH (17:55)
[2018-03-07] MEDS: LEVAQUIN 500 MG/D5W 500 MG/100 ML IVPB IV SCH (17:56)
[2018-03-07] MEDS: SINGULAIR PO SCH (22:03)
[2018-03-07] MEDS: ZOCOR PO SCH (22:03)
[2018-03-07] MEDS: DESYREL PO SCH (22:03)
[2018-03-08] MEDS: NORCO-5 PO PRN (01:35)
[2018-03-08] MEDS: MIRAPEX PO SCH ×3 (01:37→14:43)
[2018-03-08] MEDS: DUONEB (A & A) INH SCH (03:35)
[2018-03-08] MEDS: SOLU-MEDROL IV SCH (04:23)
[2018-03-08] MEDS: SYNTHROID PO SCH (06:28)
[2018-03-08] MEDS: HUMULIN R SUBQ SCH ×2 (06:31→11:52)
--- NOTE | 2018-03-08 07:37 | DISCHARGE SUMMARY ---
ADMISSION DATE: 03/04/2018 DISCHARGE DATE: FINAL DISCHARGE DIAGNOSES: 1. Acute asthmatic bronchitis. 2. Chronic obstructive pulmonary disease exacerbation. 3. Diabetes mellitus. 4. Fatigue. 5. Gastritis and reflux disease. 6. Chronic low back pain. 7. Uncontrolled diabetes mellitus. 8. Hypothyroidism. 9. Hyperlipidemia. 10. Situational depression. 11. Anxiety. 12. Urinary tract infection. HISTORY OF PRESENT ILLNESS: Ms. Shaffer is an 82-year-old, white, female patient admitted with weakness, cough, chest congestion, wheezing, shortness of breath, extreme weakness. I evaluated the patient in the office. The patient did have wheezing and shortness of breath. Decided to admit the patient for further care. HOSPITAL COURSE: The patient was admitted to a telemetry bed. I started her on IV antibiotics, oxygen, bronchodilator treatment. Patient was placed on telemetry. Her clinical condition gradually improved. The patient was started on IV steroids. Patient responded gradually. She is feeling better. Oral intake is improving. Her blood sugar is staying high, most likely due to steroids. Initially, I kept her on low-dose insulin because of risk of hypoglycemia but she was on sliding-scale insulin. The patient is doing better. Shortness of breath improving. The patient responded well to bronchodilator treatment. The patient is eager to go home. No chest pain, palpitations. Cough and chest congestion improved. PHYSICAL EXAMINATION: Vital Signs: Blood pressure 125/58, pulse 86, respirations normal, temperature 97.3 degrees. Skin: Normal turgor. No rash or petechiae. HEENT: Head atraumatic and normocephalic. [place] conjunctivae. Anicteric sclerae. Extraocular muscle movement normal. Fundus cannot be penetrated. Good oral hygiene. No tonsillopharyngeal congestion. Ears and nose benign. Neck: Supple. No JVD, thyromegaly or lymphadenopathy. Chest: Bilateral good air entry present. No rales. CVS: S1 and S2 heard. No gallop or thrill. Abdomen: Soft, nontender. Bowel sounds present. Extremities: No cyanosis, clubbing. No acute DVT. TIRE SPECIALIST: Alert, awake. Able to move all 4 limbs. Overall, patient received maximum benefit of hospitalization. I am planning to discharge patient home. LABORATORY DATA: Done yesterday, WBC count 11.09, hemoglobin 13.5, hematocrit 42.3, platelet count 211,000. PT/INR 1.19, PTT 36.9. Potassium was 3.6, BUN 20, creatinine 1.1. Vitamin B12 978. The patient's urinalysis did reveal leukocytes large but urine culture was mixed florae. Repeat chest x-ray, no acute abnormality. PLAN: Overall, the patient is doing better. I am planning to discharge the patient home today. Discussed about steroid-induced hyperglycemia and what to do. I am going to get her home health, nebulizer treatment. Continue oral antibiotics. Continue home medicine. Advised her to gradually increase her insulin. Follow up with me in 1 week. In case of more distress, call us back or go to emergency room. CONDITION: Overall discharge condition satisfactory. cc: Damon Jennings MD
[2018-03-08] MEDS: TOPROL XL PO SCH (08:31)
[2018-03-08] MEDS: ELIQUIS PO SCH (08:31)
[2018-03-08] MEDS: MUCINEX DM PO SCH (08:31)
[2018-03-08] MEDS: INVOKANA PO SCH (08:31)
[2018-03-08] MEDS: BACTROBAN OINTMENT TOP SCH (08:31)
[2018-03-08] MEDS: LASIX PO SCH (08:31)
[2018-03-08] MEDS: COZAAR PO SCH (08:31)
[2018-03-08] MEDS: LEXAPRO PO SCH (08:31)
[2018-03-08] MEDS ORDERED: LEVEMIR SUBQ SCH (09:00)
[2018-03-08] MEDS ORDERED: PREDNISONE PO ONE (10:54)
[2018-03-08 11:13] VITALS: BP 122/44
[2018-03-08] MEDS: ROCEPHIN 1 GM in NS 50 ML IV SCH (14:43)
== END 2018-03-08 14:45 | disposition home health service (06) | DRG 191 ==
LOC: DIRADM 09:53 → 3N 10:06
PROVIDERS: ADMIT Internal Medicine; ATTEND Internal Medicine
CPT/HCPCS: 71020; 71046; 80053; 81001; 82550; 82607; 82805; 82948; 83735; 83880; 84100; 84484; 85025; 85610; 85730; 87070; 87088; 87205; 93005; 93010; 94640; 94761; A9270; J0696; J1956; J2550; J2920; J7506; J7512; XXXXX

== ENCOUNTER 2019-01-09 09:21 | Inpatient (IN) ==
[2019-01-09] MEDS ORDERED: D50W SYRINGE IV PRN (10:45)
[2019-01-09] MEDS ORDERED: LOVENOX SUBQ SCH (10:45)
--- NOTE | 2019-01-09 11:13 | Diag Imaging Result Doc PS360 ---
KUB ABDOMEN - 01/09/2019 INDICATION: coughing up discolored sputum COMPARISON: 07/05/2017 FINDINGS: There is a nonobstructive bowel gas pattern. No free air or abdominal calcifications. Stable cholecystectomy clips. IMPRESSION: No acute disease. Electronically signed by Fadi Aldana 01/09/2019 11:11 AM
--- NOTE | 2019-01-09 11:13 | Diag Imaging Result Doc PS360 ---
CHEST-2 VIEWS - 01/09/2019 INDICATION: coughing up discolored sputum COMPARISON: 03/07/2018 FINDINGS: There is cardiomegaly and mild pulmonary vascular congestion. There is significant infiltrate throughout the left lower lobe. No pneumothorax or pleural effusion. The right lung is clear of infiltrate. IMPRESSION: Left lower lobe infiltrate compatible with bronchopneumonia. Cardiomegaly and pulmonary vascular congestion. Electronically signed by Fadi Aldana 01/09/2019 11:11 AM
[2019-01-09 11:36] LABS: BASO# 0.02 X1000 (0.0-0.2); BASO% 0.2 % (0.0-0.8); EOS# 0.19 X1000 (0.0-0.7); EOS% 2.2 % (0.0-10.0); HEMOGLOBIN 10.5 g/dL (12.0-16.0); IMM GRAN# 0.09 X1000 (0.0-0.04); LYMPH# 1.57 X1000 (1.2-3.4); LYMPH% 18.3 % (20.5-51.1); MCH 27.3 PG (27-31); MCHC 31.8 g/dL (33-37); MCV 85.9 FL (81-99); MONO# 0.53 X1000 (0.11-0.59); MONO% 6.2 % (1.7-9.3); MPV 10.5 FL (7.4-10.4); NEUT% 72.1 % (42.2-75.2); PLT 250 X1000 (130-400); RBC 3.84 XMIL (4.2-5.4); RDW 14.7 % (11.5-14.5)
[2019-01-09 11:43] LABS: INR 1.72; PROTIME 20.5 Seconds (11.0-16.0)
[2019-01-09 11:44] LABS: PTT 42.2 Seconds (22.3-41.8)
[2019-01-09 11:53] LABS: HEMOGLOBIN A1C 7.3 % (4.8-6.0)
[2019-01-09 12:06] LABS: ALLEN TEST YES; BLOOD TYPE ARTERIAL; HCO3-(ACT) 27.2 mmoll (20.0-26.0); O2(CT) 14.1 mL/dL (15.0-23.0); PCO2(98.6) 47 mmHg (35-45); PO2(98.6) 81 mmHg (60-100); SAMPLE BLOOD; THB 10.6 g/dL (11.5-17.4); pH(98.6) 7.39 (7.35-7.45)
[2019-01-09 12:07] LABS: MODALITY CANNULA
[2019-01-09 12:10] LABS: ALB/GLOB RATIO 1.2; ALBUMIN 3.7 g/dL (3.5-5.0); CALCIUM 8.3 mg/dL (8.8-10.2); CREATININE 2.4 mg/dL (0.5-0.9); MAGNESIUM 2.8 mg/dL (1.5-2.7); POTASSIUM 3.4 mmol/L (3.5-5.1); TOTAL BILIRUBIN 0.2 mg/dL (0.20-1.00); TOTAL PROTEIN 6.8 g/dL (6.3-8.3)
[2019-01-09] MEDS: HUMALOG SUBQ SCH ×2 (13:28→17:15)
[2019-01-09] MEDS ORDERED: CALMOSEPTINE OINTMENT TOP PRN (13:37)
[2019-01-09] MEDS ORDERED: NEURONTIN PO PRN (13:37)
[2019-01-09] MEDS ORDERED: MUCINEX DM PO PRN (13:37)
--- NOTE | 2019-01-09 13:41 | EKG Report ---
Test Performed on : 01/09/2019 10:50:06 AM Test Reason : coughing up discolored sputum Blood Pressure : / mmHG Vent. Rate : 065 BPM Atrial Rate : 065 BPM P-R Int : 208 ms QRS Dur : 152 ms QT Int : 498 ms P-R-T Axes : 014 039 067 degrees QTc Int : 517 ms Normal sinus rhythm. Left bundle branch block Abnormal ECG Unconfirmed Result
[2019-01-09] MEDS: ROCEPHIN 1 GM in NS 50 ML IV SCH (14:34)
[2019-01-09 15:27] LABS: URINE SOURCE CLEAN CATCH
[2019-01-09 15:46] LABS: BILIRUBIN URINE NEGATIVE (NEGATIVE); BLOOD URINE NEGATIVE (NEGATIVE); COLOR STRAW; GLUCOSE URINE 100 mg/dL (NEGATIVE); KETONE URINE NEGATIVE (NEGATIVE); LEUKOCYTES URINE NEGATIVE (NEGATIVE); NITRITE URINE NEGATIVE (NEGATIVE); PROTEIN URINE NEGATIVE (NEGATIVE); SP GRAVITY URINE 1.008; TURBIDITY URINE CLEAR (CLEAR); UROBILINOGEN URINE NORMAL (NORMAL)
[2019-01-09 15:49] LABS: UR EPITHELIAL CELLS <10 /HPF (<10); URINE BACTERIA NEGATIVE /HPF; URINE RBC <10 /HPF (<10); URINE WBC <10 /HPF (<10)
[2019-01-09] MEDS: DUONEB (A & A) INH SCH ×2 (16:10→21:00)
[2019-01-09] MEDS ORDERED: LASIX PO SCH (17:00)
[2019-01-09] MEDS ORDERED: HUMALOG SUBQ SCH (17:00)
[2019-01-09] MEDS ORDERED: KLOR-CON PO ONE (17:25)
--- NOTE | 2019-01-09 17:54 | HISTORY AND PHYSICAL ---
CHIEF COMPLAINT: Altered mental status, shortness of breath. HISTORY OF PRESENT ILLNESS: Ms. Shaffer is an 83-year-old white female patient, with multiple medical problems in the form of longstanding diabetes, hypertension, COPD, cirrhosis of the liver, chronic pain, not doing well for 1 week. According to daughter and patient, she had increasing confusion, disorientation, feverish feeling, and chills. The patient had cough with brown expectoration, at times blood in the sputum. The patient did have some chills. Increasing confusion and disorientation. The patient was brought to my office for evaluation. I evaluated the patient and decided to admit her for further care because of her delirium. The patient was in the emergency room about 5 days ago for some nausea and vomiting, evaluated by ER physician at that time. Patient was given some medication. The patient was taking her antibiotics without significant relief. The patient does have multiple medical problems, and I decided to admit the patient because of delirium, hemoptysis, chills, low-grade fever, and she was not responding to outpatient treatment. The patient claims her blood sugar was doing better, at times staying low. She did have chest soreness when she coughs. Dull headache. No diplopia. No runny nose, stuffy nose, sinus drainage. Patient does have constipation, no bleeding per rectum. Complaining of back pain. No dysuria or hematuria. No blood or mucus in the stool. Complaining of being constipated. No heat or cold intolerance. No further history available at this time. PAST MEDICAL HISTORY: The patient does have confusion, history suggestive of peripheral neuropathy, generalized weakness. No skin rash. No dysphagia or odynophagia. At times, epigastric discomfort. ALLERGIES: Meperidine. PAST MEDICAL HISTORY: 1. Hypertension. 2. Hypothyroidism. 3. Paroxysmal atrial fibrillation. 4. Diabetes mellitus. 5. Situational depression. 6. Peripheral neuropathy. 7. Chronic back pain. 8. Rhinitis. 9. Gastritis and reflux disease. 10. History suggestive of Parkinson disease. 11. Hyperlipidemia. 12. Insomnia. 13. Chronic low back pain. 14. Cirrhosis of the liver. PERSONAL HISTORY: Single. Nonsmoker. Denied alcohol or substance abuse. Needs minimal assistance in activities of daily living. FAMILY HISTORY: Noncontributory. REVIEW OF SYSTEMS: As per HPI. Otherwise unobtainable. PHYSICAL EXAMINATION: GENERAL: Elderly white female patient, in mild distress. VITAL SIGNS: On admission, blood pressure 120/50, pulse 69, respirations 22, temperature 97.9 degrees. SKIN: Senile turgor. HEENT: Head atraumatic, normocephalic. [place] conjunctivae. Anicteric sclerae. Extraocular muscle movement normal. Fundus cannot be penetrated. Good oral hygiene. No tonsillopharyngeal congestion or exudate. Ears and nose benign. NECK: Supple. No JVD, thyromegaly, or lymphadenopathy. CHEST: Bibasilar crepitation. Occasional wheezing. Inspiratory crepitation, left base. CARDIOVASCULAR: S1 and S2 heard, 2/6 systolic murmur at the apex. ABDOMEN: Soft, globular. Bowel sounds present. No organomegaly or mass. EXTREMITIES: No cyanosis, clubbing. No acute DVT. Peripheral pulsation intact. MUSCULOSKELETAL: Tenderness, lumbosacral spine. CENTRAL NERVOUS SYSTEM: Alert, awake, able to move all 4 limbs. DIAGNOSTIC STUDIES: Hemoglobin 10.5, hematocrit 33, platelet count 250,000, WBC count 8.6. PT/INR 1.72, PTT 42.2. Blood gas: PH 7.39, pCO2 of 47, PO2 was 81. Electrolytes: Potassium 3.4. CO2 was 26, BUN 55, creatinine 2.4. Hemoglobin A1c was 7.3. Amylase and lipase were normal. Patient's chest x-ray did reveal left lower lobe pneumonia. Abdominal x-ray was benign. CONSIDERATION: 1. Patient admitted with delirium. Chest x-ray revealed left lower lobe pneumonia, cardiomegaly, and pulmonary vascular congestion. 2. Her other problem includes diabetes. The patient blood sugar was low. I am going to hold her insulin. We will continue sliding scale and close observation. 3. Chronic low back pain. 4. Hypothyroidism. 5. Gastritis and reflux disease. 6. Cirrhosis of the liver. 7. Hypertension. Current medication reviewed and continued. I am going to hydrate the patient. I am going to get CT scan of the chest without contrast. Overall plan discussed with the patient and family. Continue bronchodilator treatment, IV antibiotics. We will continue bronchodilator treatment, home medicine. cc: Damon Jennings MD
[2019-01-09] MEDS: MIRAPEX PO SCH (18:09)
[2019-01-09] MEDS: POTASSIUM CHLORIDE 10 MEQ in NS 1,000 ML IV SCH (18:33)
[2019-01-09] MEDS: DOXYCYCLINE 100 MG in NS 250 ML IV SCH (18:33)
[2019-01-09] MEDS ORDERED: LEVEMIR SUBQ SCH (21:00)
[2019-01-09] MEDS: MUCOMYST 20% INH SCH (21:00)
--- NOTE | 2019-01-09 21:18 | Diag Imaging Result Doc PS360 ---
EXAM: CT THORAX W/O CONTRAST 01/09/2019 HISTORY: lung mass TECHNIQUE: This exam was performed using automated exposure control, adjustment of mA or kV according to patient size, and/or use of iterative reconstruction technique. COMMENT: Comparison is made with the previous study of 05/01/2013. The previous study was performed with contrast. There are subcentimeter mediastinal nodes similar in appearance to the previous study. There are coronary calcifications. There are small bilateral pleural effusions. There is a small amount of pericardial effusion. The adrenal glands are not enlarged. There is no evidence of acute disease in the visualized portion of the abdomen. There is patchy air trapping and groundglass opacity bilaterally particularly in the parahilar portions of both upper lobes. There is ill-defined opacity in the inferior lingula and left lower lobe. This may represent pneumonia. It is worse than on the previous study. There is no evidence of bronchial obstruction. The small pulmonary nodule which was demonstrated on the previous study laterally in the right upper lobe on image 49 is present on image 38 of today's study and has not changed significantly. There is no evidence of acute bony abnormality. IMPRESSION: Bronchopneumonia particularly in the left lower lobe. Small pleural effusions. Electronically signed by Antonio Watkins 01/09/2019 9:16 PM
[2019-01-09] MEDS: DESYREL PO SCH (22:17)
[2019-01-09] MEDS: ZOCOR PO SCH (22:18)
[2019-01-09] MEDS: SINGULAIR PO SCH (22:18)
[2019-01-09] MEDS: ELIQUIS PO SCH (22:18)
[2019-01-10] MEDS: DUONEB (A & A) INH SCH ×4 (03:36→22:17)
[2019-01-10 05:17] LABS: BASO# 0.02 X1000 (0.0-0.2); BASO% 0.2 % (0.0-0.8); EOS# 0.17 X1000 (0.0-0.7); HEMATOCRIT 32.2 % (37.0-47.0); HEMOGLOBIN 9.9 g/dL (12.0-16.0); IMM GRAN% 1.2 % (0.0-0.5); LYMPH# 2.05 X1000 (1.2-3.4); LYMPH% 24.1 % (20.5-51.1); MCHC 30.7 g/dL (33-37); MCV 87.7 FL (81-99); MONO% 8.2 % (1.7-9.3); MPV 10.2 FL (7.4-10.4); NEUT# 5.47 X1000 (1.4-6.5); NEUT% 64.3 % (42.2-75.2); PLT 248 X1000 (130-400); RBC 3.67 XMIL (4.2-5.4); RDW 14.9 % (11.5-14.5); WBC 8.51 X1000 (4.8-10.8)
[2019-01-10] MEDS: HUMALOG SUBQ SCH ×4 (05:20→16:59)
[2019-01-10 05:46] LABS: ALB/GLOB RATIO 1.3; ALBUMIN 3.5 g/dL (3.5-5.0); CALCIUM 8.3 mg/dL (8.8-10.2); CREATININE 1.6 mg/dL (0.5-0.9); POTASSIUM 3.6 mmol/L (3.5-5.1); TOTAL BILIRUBIN 0.23 mg/dL (0.20-1.00); TOTAL PROTEIN 6.2 g/dL (6.3-8.3)
[2019-01-10] MEDS: DOXYCYCLINE 100 MG in NS 250 ML IV SCH ×2 (06:22→19:16)
--- NOTE | 2019-01-10 06:58 | PROGRESS NOTE ---
DATE: 01/10/2019 SUBJECTIVE: Mr. Shaffer is doing fair. The patient does have cough with scanty sputum production. The patient was restless last night, trying to get out of bed. No high-grade fever or chills. No nausea or vomiting. Oral intake is poor. Her blood sugar was low. I am holding her insulin. The patient is on sliding scale. We did CT scan of her chest, which did reveal bronchopneumonia, left lower lobe. The patient did have good bowel movement this morning. I am hydrating the patient. Her renal function seems to be improving. The patient still has, at times, confusion. OBJECTIVE: Vital Signs: Noted. Neck: Supple. No JVD. Lungs: Bibasilar crepitations. Occasional wheezing. Heart: S1 and S2 heard. Abdomen: Soft, globular. Bowel sounds present. Extremities: No cyanosis, clubbing. No acute DVT. PLANS EXAMINER: Alert, awake, able to move all 4 limbs. CONSIDERATION: 1. Left lower lobe pneumonia. 2. Diabetes mellitus. 3. Paroxysmal atrial fibrillation. 4. Hypoglycemia. 5. Chronic low back pain. 6. Hypothyroidism. LABORATORY DATA: Today, hemoglobin 9.9, hematocrit 32.2, platelet count 248,000. Electrolytes were fairly benign. BUN improved to 41. Creatinine 1.6. Urinalysis was benign. CT scan of the chest results reviewed. PLAN: Will continue current treatment. Close observation. I am going to admit the patient as an inpatient. cc: Damon Jennings MD
[2019-01-10] MEDS: NORCO-5 PO PRN ×2 (07:55→19:15)
[2019-01-10] MEDS: MUCOMYST 20% INH SCH ×2 (08:01→22:17)
[2019-01-10] MEDS: TOPROL XL PO SCH (09:47)
[2019-01-10] MEDS: COZAAR PO SCH (09:47)
[2019-01-10] MEDS: ELIQUIS PO SCH ×2 (09:47→20:50)
[2019-01-10] MEDS: MIRAPEX PO SCH ×3 (09:48→19:11)
[2019-01-10] MEDS: LEXAPRO PO SCH (09:48)
[2019-01-10] MEDS: LASIX PO SCH (10:00)
[2019-01-10] MEDS: SYNTHROID PO SCH (10:27)
[2019-01-10] MEDS: INVOKANA PO SCH (10:27)
[2019-01-10] MEDS: PRILOSEC PO SCH (10:27)
[2019-01-10] MEDS: POTASSIUM CHLORIDE 10 MEQ in NS 1,000 ML IV SCH ×2 (10:30→19:11)
[2019-01-10] MEDS: ROCEPHIN 1 GM in NS 50 ML IV SCH (14:16)
[2019-01-10] MEDS: DESYREL PO SCH (20:50)
[2019-01-10] MEDS: SINGULAIR PO SCH (20:50)
[2019-01-10] MEDS: ZOCOR PO SCH (20:50)
[2019-01-11] MEDS: HUMALOG SUBQ SCH ×5 (01:26→21:03)
[2019-01-11] MEDS: NORCO-5 PO PRN ×2 (03:22→15:00)
[2019-01-11] MEDS: DUONEB (A & A) INH SCH ×4 (03:28→21:26)
[2019-01-11 05:13] LABS: BASO# 0.01 X1000 (0.0-0.2); BASO% 0.1 % (0.0-0.8); EOS# 0.15 X1000 (0.0-0.7); EOS% 1.7 % (0.0-10.0); HEMATOCRIT 33.2 % (37.0-47.0); HEMOGLOBIN 10.1 g/dL (12.0-16.0); IMM GRAN# 0.14 X1000 (0.0-0.04); IMM GRAN% 1.5 % (0.0-0.5); LYMPH# 1.68 X1000 (1.2-3.4); LYMPH% 18.6 % (20.5-51.1); MCH 26.6 PG (27-31); MCHC 30.4 g/dL (33-37); MCV 87.6 FL (81-99); MONO# 0.69 X1000 (0.11-0.59); MONO% 7.6 % (1.7-9.3); NEUT# 6.37 X1000 (1.4-6.5); NEUT% 70.5 % (42.2-75.2); PLT 296 X1000 (130-400); RBC 3.79 XMIL (4.2-5.4); RDW 14.9 % (11.5-14.5); WBC 9.04 X1000 (4.8-10.8)
[2019-01-11 05:46] LABS: ALB/GLOB RATIO 1.3; ALBUMIN 3.6 g/dL (3.5-5.0); CALCIUM 8.6 mg/dL (8.8-10.2); CREATININE 1.1 mg/dL (0.5-0.9); POTASSIUM 3.1 mmol/L (3.5-5.1); TOTAL BILIRUBIN 0.36 mg/dL (0.20-1.00); TOTAL PROTEIN 6.3 g/dL (6.3-8.3)
[2019-01-11] MEDS: INVOKANA PO SCH (06:33)
[2019-01-11] MEDS: PRILOSEC PO SCH (06:33)
[2019-01-11] MEDS: SYNTHROID PO SCH (06:33)
[2019-01-11] MEDS: DOXYCYCLINE 100 MG in NS 250 ML IV SCH ×2 (06:33→18:13)
--- NOTE | 2019-01-11 07:32 | PROGRESS NOTE ---
DATE: 01/11/2019 SUBJECTIVE: Ms. Shaffer is doing fair. The patient does have a problem with confusion and sundowning. Oral intake is fair. No high-grade fever or chills. The patient does have chest congestion and cough. OBJECTIVE: Vital Signs: Her vital signs noted. Neck: Neck is supple. No JVD. Lungs: Bibasilar crepitations. CVS: S1 and S2 heard. Abdomen: Soft, globular. Bowel sounds present. Extremities: No cyanosis, clubbing. No acute DVT. ROVING CAN TENDER: Alert, awake, able to move all 4 limbs. LABORATORY DATA: Revealed hemoglobin 10.1, hematocrit 33.2, platelet count 296, WBC count 9.04. Electrolytes: Her potassium was 3.1, BUN 19, creatinine 1.1. Ammonia level on admission was normal. The rest of the LFTs were benign. ASSESSMENT AND PLAN: 1. The patient admitted with bronchopneumonia on intravenous antibiotics, bronchodilator treatment, which will continue. 2. The patient does have altered mental status 3. Paroxysmal atrial fibrillation. 4. Diabetes mellitus. 5. Acute kidney injury. Overall patient is doing better. We will continue current treatment. Close observation. The patient is eager to go home. I will talk to family, and then will make further recommendations. cc: Damon Jennings MD
[2019-01-11] MEDS: TOPROL XL PO SCH (09:42)
[2019-01-11] MEDS: MIRAPEX PO SCH ×3 (09:42→18:12)
[2019-01-11] MEDS: COZAAR PO SCH (09:43)
[2019-01-11] MEDS: LEXAPRO PO SCH (09:43)
[2019-01-11] MEDS: LASIX PO SCH (09:43)
[2019-01-11] MEDS: ELIQUIS PO SCH ×2 (09:43→20:56)
[2019-01-11] MEDS: MUCOMYST 20% INH SCH ×2 (10:05→21:26)
[2019-01-11] MEDS: ROCEPHIN 1 GM in NS 50 ML IV SCH (13:00)
[2019-01-11] MEDS ORDERED: KLOR-CON PO ONE (15:08)
[2019-01-11] MEDS: MAALOX PLUS LIQUID PO PRN (15:37)
[2019-01-11] MEDS: SINGULAIR PO SCH (20:56)
[2019-01-11] MEDS: ZOCOR PO SCH (20:56)
[2019-01-11] MEDS: DESYREL PO SCH (20:56)
[2019-01-12] MEDS: MAALOX PLUS LIQUID PO PRN (00:57)
[2019-01-12] MEDS: NORCO-5 PO PRN ×2 (01:09→09:10)
[2019-01-12 01:43] LABS: ALLEN TEST YES; BE -5.6 mmoll (-3.0-3.0); BLOOD TYPE ARTERIAL; HCO3-(ACT) 20.4 mmoll (20.0-26.0); O2(CT) 15.1 mL/dL (15.0-23.0); O2HB 91.5 % (95.0-99.0); PCO2(98.6) 39 mmHg (35-45); PO2(98.6) 68 mmHg (60-100); SAMPLE BLOOD; SAO2 91.5 % (95.0-100.0); THB 11.7 g/dL (11.5-17.4); pH(98.6) 7.32 (7.35-7.45)
[2019-01-12 01:44] LABS: MODALITY NRB
[2019-01-12] MEDS: NITROGLYCERIN TOP SCH ×4 (02:41→20:21)
[2019-01-12] MEDS: CARAFATE LIQUID PO SCH ×4 (02:41→20:21)
[2019-01-12] MEDS: DUONEB (A & A) INH SCH ×4 (03:25→19:30)
[2019-01-12] MEDS ORDERED: XANAX PO PRN (06:12)
[2019-01-12] MEDS: SYNTHROID PO SCH (06:20)
[2019-01-12] MEDS: INVOKANA PO SCH (06:20)
[2019-01-12] MEDS: PRILOSEC PO SCH (06:20)
[2019-01-12] MEDS: DOXYCYCLINE 100 MG in NS 250 ML IV SCH (06:20)
[2019-01-12] MEDS: HUMALOG SUBQ SCH ×4 (06:28→21:05)
[2019-01-12 06:43] LABS: BASO# 0.01 X1000 (0.0-0.2); BASO% 0.1 % (0.0-0.8); HEMOGLOBIN 10.3 g/dL (12.0-16.0); IMM GRAN# 0.21 X1000 (0.0-0.04); LYMPH# 1.25 X1000 (1.2-3.4); LYMPH% 11.9 % (20.5-51.1); MCH 27.2 PG (27-31); MCHC 31.2 g/dL (33-37); MCV 87.3 FL (81-99); MONO# 0.62 X1000 (0.11-0.59); MONO% 5.9 % (1.7-9.3); MPV 9.7 FL (7.4-10.4); NEUT# 8.38 X1000 (1.4-6.5); NEUT% 80.1 % (42.2-75.2); PLT 305 X1000 (130-400); RBC 3.78 XMIL (4.2-5.4); WBC 10.47 X1000 (4.8-10.8)
--- NOTE | 2019-01-12 07:15 | Diag Imaging Result Doc PS360 ---
EXAM: CHEST-PORTABLE 01/12/2019 HISTORY: PNA TECHNIQUE: AP portable at 0505 COMMENT: There is obscuration of the left heart border and hemidiaphragm. This is worse than on 01/09/2019. The inspiration is somewhat suboptimal. The heart size appears to be slightly enlarged. IMPRESSION: Lingular and left lower lobe pneumonia. The possibility of superimposed pulmonary edema cannot be excluded. Electronically signed by Antonio Watkins 01/12/2019 7:13 AM
[2019-01-12 07:20] LABS: ALB/GLOB RATIO 1.3; ALBUMIN 3.4 g/dL (3.5-5.0); CALCIUM 8.7 mg/dL (8.8-10.2); CREATININE 1.1 mg/dL (0.5-0.9); MAGNESIUM 2.1 mg/dL (1.5-2.7); POTASSIUM 3.9 mmol/L (3.5-5.1); TOTAL BILIRUBIN 0.51 mg/dL (0.20-1.00); TOTAL PROTEIN 6.1 g/dL (6.3-8.3)
--- NOTE | 2019-01-12 07:52 | EKG Report ---
Test Performed on : 01/12/2019 01:33:31 AM Test Reason : HR 130 Blood Pressure : / mmHG Vent. Rate : 113 BPM Atrial Rate : 113 BPM P-R Int : 232 ms QRS Dur : 144 ms QT Int : 350 ms P-R-T Axes : 000 146 051 degrees QTc Int : 480 ms Suspect arm lead reversal, interpretation assumes no reversal Sinus tachycardia. with 1st degree AV block. Nonspecific intraventricular block Cannot rule out Septal infarct , age undetermined Lateral infarct , age undetermined Abnormal ECG When compared with ECG of 09-JAN-2019 10:50, Vent. rate has increased BY 48 BPM QRS axis shifted right Unconfirmed Result
[2019-01-12] MEDS: LEXAPRO PO SCH (09:09)
[2019-01-12] MEDS: COZAAR PO SCH (09:10)
[2019-01-12] MEDS: ELIQUIS PO SCH ×2 (09:10→20:21)
[2019-01-12] MEDS: LASIX PO SCH (09:10)
[2019-01-12] MEDS: TOPROL XL PO SCH (09:10)
[2019-01-12] MEDS: MIRAPEX PO SCH ×3 (09:10→17:23)
[2019-01-12] MEDS: MUCOMYST 20% INH SCH ×2 (09:41→19:44)
[2019-01-12 11:23] LABS: INR 1.57; PROTIME 19.1 Seconds (11.0-16.0)
[2019-01-12 11:24] LABS: PTT 37.3 Seconds (22.3-41.8)
[2019-01-12 12:19] LABS: URINE SOURCE CATH
[2019-01-12 12:34] LABS: BILIRUBIN URINE NEGATIVE (NEGATIVE); BLOOD URINE NEGATIVE (NEGATIVE); COLOR STRAW; GLUCOSE URINE >1000 mg/dL (NEGATIVE); KETONE URINE 40 mg/dL (NEGATIVE); LEUKOCYTES URINE NEGATIVE (NEGATIVE); NITRITE URINE NEGATIVE (NEGATIVE); PROTEIN URINE NEGATIVE (NEGATIVE); SP GRAVITY URINE 1.013; TURBIDITY URINE CLEAR (CLEAR); UR EPITHELIAL CELLS <10 /HPF (<10); URINE BACTERIA NEGATIVE /HPF; URINE RBC <10 /HPF (<10); URINE WBC <10 /HPF (<10); UROBILINOGEN URINE NORMAL (NORMAL)
[2019-01-12] MEDS: ROCEPHIN 1 GM in NS 50 ML IV SCH (14:08)
[2019-01-12] MEDS: ZOFRAN IV PRN (14:33)
[2019-01-12] MEDS ORDERED: LASIX IV ONE (14:44)
[2019-01-12] MEDS ORDERED: VANCOMYCIN IV PER PHARMACY MISC SCH (15:00)
[2019-01-12 15:35] LABS: HEMATOCRIT 32.3 % (37.0-47.0); HEMOGLOBIN 10.2 g/dL (12.0-16.0); IMM GRAN# 0.24 X1000 (0.0-0.04); IMM GRAN% 2.1 % (0.0-0.5); LYMPH# 1.04 X1000 (1.2-3.4); LYMPH% 9.2 % (20.5-51.1); MCH 27.3 PG (27-31); MCHC 31.6 g/dL (33-37); MCV 86.6 FL (81-99); MONO# 0.65 X1000 (0.11-0.59); MONO% 5.8 % (1.7-9.3); MPV 10.1 FL (7.4-10.4); NEUT# 9.33 X1000 (1.4-6.5); NEUT% 82.9 % (42.2-75.2); PLT 308 X1000 (130-400); RBC 3.73 XMIL (4.2-5.4); RDW 15.1 % (11.5-14.5); WBC 11.26 X1000 (4.8-10.8)
[2019-01-12 15:56] LABS: AMYLASE 29 U/L (20-200); LIPASE 21 U/L (13-60)
[2019-01-12] MEDS ORDERED: VANCOMYCIN 1,500 MG in NS 250 ML IV ONE (16:00)
[2019-01-12 16:01] LABS: ALB/GLOB RATIO 1.1; ALBUMIN 3.4 g/dL (3.5-5.0); CALCIUM 8.9 mg/dL (8.8-10.2); CREATININE 0.9 mg/dL (0.5-0.9); POTASSIUM 3.3 mmol/L (3.5-5.1); TOTAL BILIRUBIN 0.62 mg/dL (0.20-1.00); TOTAL PROTEIN 6.4 g/dL (6.3-8.3)
--- NOTE | 2019-01-12 16:52 | Diag Imaging Result Doc PS360 ---
EXAM: CT ABDOMEN/PELVIS W/O CONTRAST 01/12/2019 HISTORY: abd. pain TECHNIQUE: This exam was performed using automated exposure control, adjustment of mA or kV according to patient size, and/or use of iterative reconstruction technique. COMMENT: The current study is compared with 01/04/2019. There is worsened opacification of the posterior lower lobes bilaterally. There are bilateral pleural effusions which were not present previously. The liver spleen adrenal glands and pancreas are stable in appearance. The kidneys are without evidence of hydronephrosis or stones. There is no evidence of bowel obstruction. There is an apparent appendicolith. There is no evidence of appendicitis and the appendix is less than 5 mm in diameter. There is diverticulosis in the sigmoid colon. There is no evidence of active diverticulitis. There has been hysterectomy. The urinary bladder is slightly distended. There is fluid in the vaginal cuff which was not the case previously. There is coarsened trabecular pattern and sclerosis in the sacrum which may be indicative of Paget's disease. There was increased radiotracer accumulation in these areas on the bone scan of 04/01/2018. There is a similar appearance in the L3 vertebra. The appearance has not changed significantly since 05/01/2013. IMPRESSION: Bilateral pleural effusions and basilar atelectasis. Fluid in the vagina. Slightly distended urinary bladder. Electronically signed by Antonio Watkins 01/12/2019 4:49 PM
--- NOTE | 2019-01-12 18:05 | ECHO REPORT ---
ORDER DATE: 01/12/2019 INTERPRETING PHYSICIAN: Dr. Abdirizak Cam REQUESTING PHYSICIAN: Pravin Wilkerson MD CLINICAL INDICATIONS: An 83-year-old female with chest pain, shortness of breath, hypertension. M-MODE MEASUREMENTS: Left ventricle end diastole: 5.6 cm. Left ventricle end systole: 3.5 cm. Posterior wall: 1.0 cm. Interventricular septum: 1.0 cm. Left atrium: 3.8 cm. Aortic root: 3.1 cm. SUMMARY OF 2-DIMENSIONAL IMAGIN. Left ventricular systolic function is normal. Ejection fraction estimated at 62%. No wall motion abnormality is noted. 2. Aortic valve is normal. Color flow mapping unremarkable. 3. The mitral valve shows a moderate degree of regurgitation. 4. Pulse wave Doppler of mitral inflow shows "normal" E/A ratio. 5. Tissue Doppler of septal and lateral mitral annulus averages 9 cm per second. 6. Pulmonary venous flow is normal. 7. There is normal diastolic function. 8. Pulmonic valve is normal. Color flow mapping unremarkable. 9. The tricuspid valve shows a mild degree or regurgitation. 10.Pulmonary pressure is estimated at 47-52 mmHg. 11.There is a small pericardial effusion that is not causing any pericardial tamponade. 12.There is a pleural effusion also. 13.The atria appear to be normal. Clinical correlation is recommended. cc: MD Pravin Henderson MD Bharat K. Vakharia, MD
--- NOTE | 2019-01-12 18:36 | PROGRESS NOTE ---
DATE: 01/12/2019 SUBJECTIVE: Ms. Shaffer is not doing well. The patient has significant abdominal pain, nausea, and vomiting. The patient was also complaining of some shortness of breath. No high-grade fever or chills. No typical chest pain. The patient was restless. No dysuria or hematuria. The patient was also complaining of some diarrhea. OBJECTIVE: Vital signs: Noted. Neck: Supple. No JVD. Lungs: Bibasilar crepitations. Heart: S1 and S2 heard. Abdomen: Soft, globular. Bowel sounds present. Extremities: No cyanosis, clubbing. No acute DVT. PADDING GLUER: Alert, awake. Able to move all 4 limbs. LABORATORY DATA: Done today, hemoglobin 10.3, hematocrit 33, platelet count 305,000. PT/INR 1.57. Blood gas results reviewed. Electrolytes noted. Cardiac isoenzymes negative. ProBNP was elevated. Lactate was negative. Chest x-ray results reviewed. ASSESSMENT: Her problems includes. 1. Pneumonia. 2. Diabetes mellitus. 3. Gastritis. 4. Paroxysmal atrial fibrillation. 5. Depression. 6. Chronic back pain. 7. Hypothyroidism. PLAN: Considering significant vomiting, I am going to stop her doxycycline. Will try vancomycin and start her on Zosyn. Continue the rest of the medicines. Close observation. I will do stool workup. Considering abdominal pain and nausea, I am going to get amylase and lipase. I will also consider noncontrast CT scan of the abdomen and pelvis. cc: Damon Jennings MD
[2019-01-12] MEDS: DESYREL PO SCH (20:21)
[2019-01-12] MEDS: SINGULAIR PO SCH (20:21)
[2019-01-12] MEDS: ZOCOR PO SCH (20:21)
[2019-01-13] MEDS: CARAFATE LIQUID PO SCH ×4 (02:06→20:41)
[2019-01-13] MEDS: NITROGLYCERIN TOP SCH ×4 (02:06→20:42)
[2019-01-13] MEDS: NORCO-5 PO PRN (02:09)
[2019-01-13] MEDS: MAALOX PLUS LIQUID PO PRN (02:22)
[2019-01-13] MEDS: ZOFRAN IV PRN ×3 (02:22→17:46)
[2019-01-13] MEDS: DUONEB (A & A) INH SCH ×5 (03:10→22:51)
[2019-01-13] MEDS: PRILOSEC PO SCH (06:11)
[2019-01-13] MEDS: SYNTHROID PO SCH (06:11)
[2019-01-13] MEDS: INVOKANA PO SCH (06:11)
[2019-01-13] MEDS: HUMALOG SUBQ SCH ×4 (06:11→21:08)
[2019-01-13] MEDS ORDERED: KLOR-CON PO ONE (06:35)
[2019-01-13] MEDS: CLINIMIX E 4.25%-5% SOLUTION 1,000 ML IV SCH (06:59)
[2019-01-13] MEDS: REGLAN PO SCH ×3 (07:01→17:59)
[2019-01-13] MEDS: PROTONIX IV SCH (07:01)
[2019-01-13] MEDS: XANAX PO PRN ×4 (07:07→20:54)
[2019-01-13] MEDS: MUCOMYST 20% INH SCH ×2 (07:40→19:26)
[2019-01-13] MEDS: POTASSIUM CHLORIDE 20 MEQ/SWI 20 MEQ/100 ML IVPB IV SCH ×2 (09:00→13:30)
[2019-01-13] MEDS: LASIX PO SCH (09:06)
[2019-01-13] MEDS: TOPROL XL PO SCH (09:06)
[2019-01-13] MEDS: LEXAPRO PO SCH (09:06)
[2019-01-13] MEDS: MIRAPEX PO SCH ×3 (09:06→17:42)
[2019-01-13] MEDS: ELIQUIS PO SCH ×2 (09:07→20:41)
[2019-01-13] MEDS: COZAAR PO SCH (09:07)
[2019-01-13] MEDS ORDERED: PHENERGAN IM ONE (09:14)
--- NOTE | 2019-01-13 09:42 | PROGRESS NOTE ---
DATE: 01/13/2019 SUBJECTIVE: Ms. Shaffer is doing fair. She denied any high-grade fever or chills. The patient does have chest congestion and cough. Complaining of nausea, epigastric discomfort. She is spitting mainly a small amount of saliva. I did check her amylase and lipase and those were normal. I did CT scan of the abdomen and pelvis which revealed bilateral pleural effusions, basilar atelectasis, slightly distended urinary bladder, worsened opacification of posterior lower lobe bilaterally. Could be due to atelectasis. The patient was not getting better. I changed her antibiotics to Zosyn and vancomycin yesterday. I changed Prilosec to IV Protonix, increased her Xanax. I did check her ammonia level and it was normal. I am not sure how much is gastritis and how much is her behavior. I am going to consult Dr. Viera to as he knows the patient very well as far as her stomach is concerned. I am going to give her a trial of Reglan. OBJECTIVE: Her vital signs noted. Patient is afebrile.Neck: Supple. No JVD. Lungs: Bilateral good air entry present. CVS: S1 and S2 heard. Abdomen: Soft mild epigastric tenderness. No guarding or rigidity. Extremities: No cyanosis, clubbing. No acute DVT. CHILD CARE ASSOCIATE: Alert, awake able to move all 4 limbs. CONSIDERATION: 1. Gastritis. 2. Pneumonia. 3. Patient does have long-standing diabetes. 4. Low back pain. On pain medicine. 5. The patient other problems include hyperlipidemia Zocor, hypothyroidism on Synthroid. 6. The patient does not want to go to a prison. Continue the rest of the treatment and close observation. cc: Damon Jennings MD
--- NOTE | 2019-01-13 17:19 | GASTROENTEROLOGY CONSULTATION ---
DATE: 01/13/2019 REASON FOR CONSULTATION: Nausea and vomiting. Abdominal pain. HISTORY OF PRESENT ILLNESS: This is an 83-year-old, female who we have seen in the past. We had last seen her in the office in July. 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 Information is obtained from the daughter. Apparently patient had increasing confusion, disorientation, fever and chills. She had cough with productive sputum. She is currently being treated for pneumonia. The patient had some complaints of abdominal pain with episodes of nausea and vomiting. The daughter states she had not been able to eat well over the last week or so. She lives with the daughter. PAST MEDICAL HISTORY: Diabetes, hypertension, COPD, cirrhosis of the liver, chronic pain. 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 History of paroxysmal atrial fibrillation. Depression. ALLERGIES TO: Demerol causing nausea. HOME MEDICATIONS: 1. Albuterol every 6 hours as needed. 2. Eliquis 5 mg twice a day. 3. Invokana 100 mg daily. 4. Lexapro 20 mg daily. 5. Lasix 20 mg 3 times a day. 6. Gabapentin 600 mg twice a day as needed. 7. Guaifenesin twice a day as needed. 8. [place] 5/325 every 6 hours as needed. 9. NovoLog 25 units subcutaneous 3 times a day. 10. Levemir 65 units subcutaneous twice a day. 11. Synthroid 88 mcg daily. 12. Cozaar 50 mg daily. 13. calmoseptine ointment as needed. 14. Metoprolol 50 mg daily. 15. Singulair 10 mg every night. 16. Prilosec 40 mg daily. 17. Zofran 4 mg every 6 hours as needed. 18. Mirapex 0.5 mg 3 times a day. 19. Zocor 40 mg every night. 20. Desyrel 150 mg every night. SOCIAL HISTORY: Patient lives with her daughter. No tobacco use. No alcohol use. REVIEW OF SYSTEMS: Per history of present illness. PHYSICAL EXAMINATION: Vital Signs: Temperature 98 degrees, pulse 75, respirations 15, blood pressure 142/57. General: At the time of my evaluation, patient was oblique. Information was obtained from the daughter. Patient did arouse some with stimulus. Respiratory: Lung sounds essentially clear. Cardiovascular: Regular rate and rhythm. Abdomen: Soft. Some tenderness in the epigastric area. LABORATORY: Hematology: WBC 11.26 hemoglobin 10.2, hematocrit 32.3, MCV 86.6, platelets 308,000. Chemistry: Sodium 141, potassium 3.3, chloride 101, CO2 of 23, BUN 17, creatinine 0.9, glucose 246, total bilirubin 0.62, AST 18, ALT 16, alkaline phosphatase 124. IMAGING STUDIES: Abdominal pelvis CT scan showing bilateral pleural effusion and atelectasis. Slightly distended urinary bladder and fluid in the vagina. ASSESSMENT AND PLAN: 1. Nausea, vomiting. 2. Abdominal pain. 3. Pneumonia. 4. Confusion. 5. History of adenomatous polyp in the duodenum/pylorus. RECOMMENDATIONS: 1. Recommend to continue symptomatic treatment for nausea, vomiting. 2. Continue proton pump inhibitor. 3. Will continue to follow. 4. Further plans to be made according to her progress. 5. Do not recommend repeat endoscopy at this time. I have discussed this case with Dr. Viera. Thank you for this consultation. Dictated by COSME Valladares for Bryn Viera MD cc: COSME Pacheco MD Bharat K. Vakharia, MD MTDD
[2019-01-13] MEDS: DESYREL PO SCH (20:41)
[2019-01-13] MEDS: SINGULAIR PO SCH (20:41)
[2019-01-13] MEDS: ZOCOR PO SCH (20:41)
[2019-01-14] MEDS: CLINIMIX E 4.25%-5% SOLUTION 1,000 ML IV SCH ×2 (00:49→17:08)
[2019-01-14] MEDS: NITROGLYCERIN TOP SCH ×4 (02:41→20:37)
[2019-01-14] MEDS: CARAFATE LIQUID PO SCH ×4 (02:41→20:37)
[2019-01-14] MEDS: DUONEB (A & A) INH SCH ×5 (03:09→23:39)
[2019-01-14] MEDS: PROTONIX IV SCH (06:23)
[2019-01-14] MEDS: SYNTHROID PO SCH (06:24)
[2019-01-14] MEDS: REGLAN PO SCH ×3 (06:24→16:39)
[2019-01-14] MEDS: HUMALOG SUBQ SCH ×4 (06:24→22:32)
[2019-01-14] MEDS: INVOKANA PO SCH (06:24)
[2019-01-14] MEDS: XANAX PO PRN ×2 (06:24→20:43)
[2019-01-14] MEDS: MUCOMYST 20% INH SCH ×2 (09:06→19:16)
[2019-01-14] MEDS: MIRAPEX PO SCH ×3 (09:59→16:39)
[2019-01-14] MEDS: LASIX PO SCH (10:00)
[2019-01-14] MEDS: ELIQUIS PO SCH ×2 (10:00→20:38)
[2019-01-14] MEDS: LEXAPRO PO SCH (10:00)
[2019-01-14] MEDS: COZAAR PO SCH (10:00)
[2019-01-14] MEDS: TOPROL XL PO SCH (10:00)
[2019-01-14] MEDS: LEVAQUIN 500 MG/D5W 500 MG/100 ML IVPB IV SCH (11:39)
--- NOTE | 2019-01-14 14:02 | PROGRESS NOTE ---
DATE: 01/14/2019 SUBJECTIVE: Patient is currently arousable but seems drowsy, some slurred speech, but certainly is intelligible. She answers questions appropriately, but wants to drift back off to sleep. She denies particular complaints. OBJECTIVE: T-max 99.5 degrees, pulse 80, respirations 20, blood pressure 149/56, O2 saturation on 4 L 90-93%. CV: Regular rate and rhythm. Lungs: Distant breath sounds, fairly clear. Abdomen: Protuberant, soft, nontender, nondistended. Extremities: No calf tenderness, cords or edema. Neurologic: Cranial nerves are intact. She moves all extremities well. There are no focal deficits in her extremities. She answers questions appropriately. LAB DATA: Has been reviewed from the hospitalization, and sputum culture ended up growing out normal beronica. Blood cultures x2 remain negative. ASSESSMENT: 1. Left pneumonia. 2. Gastritis. Evaluated by Gastroenterology with no plans for EGD at this time. 3. IDDM. 4. Chronic low back pain. 5. Hyperlipidemia. 6. Hypothyroidism. 7. Paroxysmal atrial fibrillation, on chronic anticoagulation PLAN: The patient is on vancomycin. I am going to add Levaquin to that. Repeat CBC, BMP, ABG, chest x-ray in the morning. I am going to reduce her [place] frequency of dosing and decrease her Xanax that is being used p.r.n. to a lower dosage as well. Continue DuoNeb and Mucomyst, Singulair, Synthroid, and her home antihypertensives. Continue oral Lasix daily. Continue her Invokana. For now, continue the trazodone at night. We will monitor her sedation level. Continue serial Accu-Cheks. She is on Eliquis b.i.d. and we will continue that. cc: MD Damon Moore MD
[2019-01-14] MEDS ORDERED: VANCOMYCIN 1,200 MG in NS 250 ML IV SCH (16:00)
[2019-01-14] MEDS: DESYREL PO SCH (20:37)
[2019-01-14] MEDS: SINGULAIR PO SCH (20:38)
[2019-01-14] MEDS: ZOCOR PO SCH (20:38)
[2019-01-15] MEDS: NORCO-5 PO PRN ×2 (00:39→12:24)
[2019-01-15] MEDS: NITROGLYCERIN TOP SCH ×4 (02:08→20:06)
[2019-01-15] MEDS: CARAFATE LIQUID PO SCH ×4 (02:08→20:07)
[2019-01-15] MEDS: DUONEB (A & A) INH SCH ×4 (03:16→23:13)
[2019-01-15 03:41] LABS: ALLEN TEST YES; BE 12.5 mmoll (-3.0-3.0); BLOOD TYPE ARTERIAL; HCO3-(ACT) 34.7 mmoll (20.0-26.0); O2(CT) 13.8 mL/dL (15.0-23.0); O2HB 95.6 % (95.0-99.0); PO2(98.6) 108 mmHg (60-100); SAMPLE BLOOD; SAO2 95.6 % (95.0-100.0); THB 10.1 g/dL (11.5-17.4); pH(98.6) 7.47 (7.35-7.45)
[2019-01-15 03:44] LABS: PCO2(98.6) 52 mmHg (35-45)
[2019-01-15 03:45] LABS: MODALITY CANNULA
[2019-01-15 05:26] LABS: BASO# 0.03 X1000 (0.0-0.2); BASO% 0.3 % (0.0-0.8); EOS# 0.19 X1000 (0.0-0.7); EOS% 1.8 % (0.0-10.0); HEMATOCRIT 32.3 % (37.0-47.0); HEMOGLOBIN 9.8 g/dL (12.0-16.0); IMM GRAN# 0.09 X1000 (0.0-0.04); IMM GRAN% 0.9 % (0.0-0.5); LYMPH# 1.82 X1000 (1.2-3.4); LYMPH% 17.6 % (20.5-51.1); MCH 26.9 PG (27-31); MCHC 30.3 g/dL (33-37); MCV 88.7 FL (81-99); MONO% 4.8 % (1.7-9.3); NEUT# 7.71 X1000 (1.4-6.5); NEUT% 74.6 % (42.2-75.2); PLT 249 X1000 (130-400); RBC 3.64 XMIL (4.2-5.4); WBC 10.34 X1000 (4.8-10.8)
[2019-01-15 06:13] LABS: CALCIUM 8.4 mg/dL (8.8-10.2); CREATININE 0.9 mg/dL (0.5-0.9); POTASSIUM 3.4 mmol/L (3.5-5.1)
[2019-01-15] MEDS: PROTONIX IV SCH (06:46)
[2019-01-15] MEDS: SODIUM CHLORIDE 0.9% INJ SCH (06:46)
[2019-01-15] MEDS: SYNTHROID PO SCH (06:47)
[2019-01-15] MEDS: INVOKANA PO SCH (06:49)
[2019-01-15] MEDS: REGLAN PO SCH ×3 (06:49→17:39)
[2019-01-15] MEDS: HUMALOG SUBQ SCH ×4 (06:50→22:47)
--- NOTE | 2019-01-15 07:49 | Diag Imaging Result Doc PS360 ---
CHEST-PORTABLE - 01/15/2019 INDICATION: dyspnea COMPARISON: 01/12/2019 FINDINGS: Stable cardiomegaly and pulmonary vascular congestion. There is slight worsening in the bilateral interstitial infiltrates compatible with pulmonary edema. No large pleural effusion. IMPRESSION: Worsening pulmonary edema. Electronically signed by Fadi Aldana 01/15/2019 7:47 AM
[2019-01-15] MEDS: MUCOMYST 20% INH SCH ×2 (09:34→23:13)
[2019-01-15] MEDS ORDERED: LASIX IV ONE (11:05)
[2019-01-15] MEDS: LEXAPRO PO SCH (11:15)
[2019-01-15] MEDS: ELIQUIS PO SCH ×2 (11:15→20:07)
[2019-01-15] MEDS: MIRAPEX PO SCH ×3 (11:15→17:39)
[2019-01-15] MEDS: LASIX PO SCH (11:15)
[2019-01-15] MEDS: LEVAQUIN 500 MG/D5W 500 MG/100 ML IVPB IV SCH (11:16)
[2019-01-15] MEDS: CLINIMIX E 4.25%-5% SOLUTION 1,000 ML IV SCH ×2 (11:18→19:04)
[2019-01-15] MEDS: COZAAR PO SCH (11:29)
[2019-01-15] MEDS: TOPROL XL PO SCH (11:30)
--- NOTE | 2019-01-15 12:13 | PROGRESS NOTE ---
DATE: 01/15/2019 SUBJECTIVE: The patient is sleeping, but she is very arousable and pleasant. She says she is feeling fairly well today. OBJECTIVE: Vital Signs: Afebrile, pulse 64, respirations 20, blood pressure 134/46, O2 saturation on 4 L is 95%. CV: RRR. Lungs: With rhonchi on the left primarily. Decreased breath sounds on the right. Abdomen: Protuberant, soft, nontender, nondistended. Extremities: No calf tenderness, cords, or edema. Neurologic: Cranial nerves are intact. She moves all extremities well. IMAGING AND LABORATORY DATA: Sodium 142, potassium 3.4, chloride 99, CO2 of 31, BUN 20, creatinine 0.9, blood sugars upper 100s to low 200s, calcium 8.4. White count 10.3, hemoglobin 9.8, platelets 249,000. ABG on 4 L reveals pH 7.47, pCO2 of 52, PO2 of 108, HC03 of 34.7, O2 saturation 95.6. AA gradient down to 84 from 596 on 01/12/2019. Chest x-ray reveals cardiomegaly, pulmonary vascular congestion, worsening of bilateral interstitial infiltrates compatible with pulmonary edema. No large pleural effusion. ASSESSMENT: 1. Probable left pneumonia. 2. Volume overload. 3. Gastritis. 4. Insulin-dependent diabetes mellitus. 5. Chronic low back pain. 6. Hyperlipidemia. 7. Paroxysmal atrial fibrillation, on chronic anticoagulation. PLAN: She is on Levaquin and vancomycin IV. Will continue those, along with nebulizer treatments. She has had reduction in her Xanax and [place]. Will reduce her oxygen slightly down to 3.5 L/minute. Give her an additional dose of IV Lasix today, whereas she is on 40 mg daily. Continue her DuoNebs, Mucomyst, Singulair, Synthroid, and antihypertensives. She is on Invokana for her blood sugar and SSI. She is on trazodone at night for sleep. She appears very arousable, and will continue to monitor her sedation factor. Eliquis will continue b.i.d. Repeat potassium/BMP, CBC, magnesium in the morning. cc: MD Damon Moore MD [facility] HOSPITALSheyla
[2019-01-15] MEDS: KLOR-CON PO SCH (12:25)
[2019-01-15] MEDS ORDERED: BLISTEX MEDICATED BERRY LIP BALM TOP PRN (13:26)
[2019-01-15] MEDS: DESYREL PO SCH (20:07)
[2019-01-15] MEDS: ZOCOR PO SCH (20:07)
[2019-01-15] MEDS: XANAX PO PRN (20:07)
[2019-01-15] MEDS: SINGULAIR PO SCH (20:07)
[2019-01-16] MEDS: XANAX PO PRN ×2 (00:01→21:59)
[2019-01-16] MEDS: CLINIMIX E 4.25%-5% SOLUTION 1,000 ML IV SCH ×2 (01:55→18:15)
[2019-01-16] MEDS: CARAFATE LIQUID PO SCH ×4 (02:04→22:00)
[2019-01-16] MEDS: NITROGLYCERIN TOP SCH ×4 (02:05→22:00)
[2019-01-16] MEDS: DUONEB (A & A) INH SCH ×4 (04:13→22:50)
[2019-01-16 05:34] LABS: BASO# 0.01 X1000 (0.0-0.2); BASO% 0.1 % (0.0-0.8); EOS# 0.18 X1000 (0.0-0.7); EOS% 1.6 % (0.0-10.0); HEMATOCRIT 33.6 % (37.0-47.0); HEMOGLOBIN 10.3 g/dL (12.0-16.0); IMM GRAN# 0.05 X1000 (0.0-0.04); IMM GRAN% 0.5 % (0.0-0.5); LYMPH% 14.5 % (20.5-51.1); MCH 26.8 PG (27-31); MCHC 30.7 g/dL (33-37); MCV 87.3 FL (81-99); MONO# 0.54 X1000 (0.11-0.59); MONO% 4.9 % (1.7-9.3); MPV 9.9 FL (7.4-10.4); NEUT# 8.65 X1000 (1.4-6.5); NEUT% 78.4 % (42.2-75.2); PLT 257 X1000 (130-400); RBC 3.85 XMIL (4.2-5.4); RDW 14.5 % (11.5-14.5); WBC 11.03 X1000 (4.8-10.8)
[2019-01-16 06:00] LABS: AGAP 13; BUN 22 mg/dL (8-22); CHLORIDE 95 mmol/L (98-107); COSMO 294; CREATININE 0.8 mg/dL (0.5-0.9); ESTIMATED GFR > 60; GLUCOSE 308 mg/dL (70-104); POTASSIUM 3.5 mmol/L (3.5-5.1); SODIUM 140 mmol/L (136-145); TCO2 32 mmol/L (25-35)
[2019-01-16] MEDS: SYNTHROID PO SCH (06:05)
[2019-01-16] MEDS: REGLAN PO SCH ×3 (06:05→16:47)
[2019-01-16] MEDS: HUMALOG SUBQ SCH ×4 (06:06→22:01)
[2019-01-16] MEDS: INVOKANA PO SCH (06:06)
[2019-01-16] MEDS: PROTONIX IV SCH (06:55)
[2019-01-16] MEDS: MIRAPEX PO SCH ×3 (08:41→16:47)
[2019-01-16] MEDS: TOPROL XL PO SCH (08:41)
[2019-01-16] MEDS: COZAAR PO SCH (08:42)
[2019-01-16] MEDS: KLOR-CON PO SCH (08:42)
[2019-01-16] MEDS: LASIX PO SCH (08:42)
[2019-01-16] MEDS: LEXAPRO PO SCH (08:42)
[2019-01-16] MEDS: ELIQUIS PO SCH ×2 (08:42→22:00)
[2019-01-16] MEDS: LEVAQUIN 500 MG/D5W 500 MG/100 ML IVPB IV SCH ×2 (08:42→09:56)
[2019-01-16] MEDS: MUCOMYST 20% INH SCH ×2 (09:36→22:50)
[2019-01-16] MEDS: NORCO-5 PO PRN (11:38)
--- NOTE | 2019-01-16 16:00 | GASTROENTEROLOGY PROGRESS NOTE ---
DATE: 01/16/2019 SUBJECTIVE: Patient was awake and alert and in no acute distress. There was no family at the bedside at the time of my visit. The patient states she is feeling better. She has had less nausea. She states she has been able to tolerate some of the food if she likes it. She does drink the Glucerna shake that is on her trays. OBJECTIVE: Vital Signs: Temperature 97.3 degrees, pulse 78, respirations 17, blood pressure 136/67. General: Patient is awake, alert, and in no acute distress. LABORATORY: Hematology: WBC 11.03, hemoglobin 10.3, hematocrit 33.6, MCV 87.3, platelets 257. Chemistry: Sodium 140, potassium 3.5, chloride 95, CO2 of 32. BUN 22, creatinine 0.8, glucose 308. ASSESSMENT AND PLAN: 1. Pneumonia on antibiotics. 2. Nausea, vomiting has improved. 3. History of adenomatous polyp in the pylorus with polypectomy performed. Patient was recommended to have a followup esophagogastroduodenoscopy in 1 year, which I believe will be May of 2019. 4. Atrial fibrillation on anticoagulation. Continue current medications. Continue PPI. Continue p.r.n. medications as needed for nausea or vomiting. Patient states that has improved. Recommend she follow up with us as an outpatient. Will continue to follow. Further plans will be made as needed. I have discussed this case with Dr. Viera. Dictated by COSME Valladares for Bryn Viera MD cc: COSME Pacheco MD Bharat K. Vakharia, MD MTDD
[2019-01-16] MEDS: VANCOMYCIN 1,400 MG in NS 250 ML IV SCH (16:47)
[2019-01-16] MEDS: ZOCOR PO SCH (22:00)
[2019-01-16] MEDS: SINGULAIR PO SCH (22:00)
[2019-01-16] MEDS: DESYREL PO SCH (22:00)
[2019-01-17] MEDS: NORCO-5 PO PRN ×3 (00:17→20:21)
[2019-01-17] MEDS: CARAFATE LIQUID PO SCH ×4 (03:44→20:29)
[2019-01-17] MEDS: NITROGLYCERIN TOP SCH ×4 (03:44→20:29)
[2019-01-17] MEDS: CLINIMIX E 4.25%-5% SOLUTION 1,000 ML IV SCH (04:07)
[2019-01-17] MEDS: DUONEB (A & A) INH SCH ×4 (05:15→19:17)
[2019-01-17] MEDS: SODIUM CHLORIDE 0.9% INJ SCH (06:13)
[2019-01-17] MEDS: PROTONIX IV SCH (06:13)
[2019-01-17] MEDS: SYNTHROID PO SCH (06:13)
[2019-01-17] MEDS: INVOKANA PO SCH (06:13)
[2019-01-17] MEDS: REGLAN PO SCH ×3 (06:14→15:23)
[2019-01-17] MEDS: HUMALOG SUBQ SCH ×4 (06:15→21:00)
[2019-01-17] MEDS: MUCOMYST 20% INH SCH ×2 (07:46→19:17)
[2019-01-17] MEDS: TOPROL XL PO SCH (08:40)
[2019-01-17] MEDS: ELIQUIS PO SCH ×2 (08:40→20:29)
[2019-01-17] MEDS: KLOR-CON PO SCH (08:40)
[2019-01-17] MEDS: COZAAR PO SCH (08:40)
[2019-01-17] MEDS: LASIX PO SCH (08:40)
[2019-01-17] MEDS: MIRAPEX PO SCH ×3 (08:40→16:56)
[2019-01-17] MEDS: LEVAQUIN 500 MG/D5W 500 MG/100 ML IVPB IV SCH ×2 (08:40→12:06)
[2019-01-17] MEDS: LEXAPRO PO SCH (08:40)
--- NOTE | 2019-01-17 11:34 | PROGRESS NOTE ---
DATE: 01/17/2019 SUBJECTIVE: Ms. Shaffer is doing better. Her oral intake is improving. Vital signs are stable. Blood pressure 161/54. She has been admitted with worsening pulmonary edema. There is a possibility of bilateral infiltrates with pneumonia. Her white count has been slightly elevated at 11.03. She has been on IV Levaquin and IV vancomycin also. PLAN: We will continue with the current management. We will repeat a chest x-ray tomorrow. Get the electrolytes also. -6 cc: MD Damon Perez MD
--- NOTE | 2019-01-17 11:36 | PROGRESS NOTE ---
DATE: 01/17/2019 ADDENDUM: Ms Shaffer has mild renal failure. She has pulmonary edema, possible bilateral pneumonia. We will continue with the current management. -8 cc: MD Damon Perez MD
[2019-01-17] MEDS: VANCOMYCIN 1,400 MG in NS 250 ML IV SCH (16:55)
[2019-01-17] MEDS: ZOCOR PO SCH (20:29)
[2019-01-17] MEDS: XANAX PO PRN (20:29)
[2019-01-17] MEDS: SINGULAIR PO SCH (20:29)
[2019-01-17] MEDS: DESYREL PO SCH (20:29)
[2019-01-18] MEDS: CARAFATE LIQUID PO SCH ×4 (01:10→22:13)
[2019-01-18] MEDS: NITROGLYCERIN TOP SCH ×4 (01:11→22:14)
[2019-01-18] MEDS: CLINIMIX E 4.25%-5% SOLUTION 1,000 ML IV SCH ×2 (01:13→17:04)
[2019-01-18] MEDS: DUONEB (A & A) INH SCH ×4 (03:29→21:35)
[2019-01-18] MEDS: INVOKANA PO SCH (06:36)
[2019-01-18] MEDS: PROTONIX IV SCH (06:36)
[2019-01-18] MEDS: REGLAN PO SCH ×3 (06:36→16:15)
[2019-01-18] MEDS: SYNTHROID PO SCH (06:36)
[2019-01-18] MEDS: HUMALOG SUBQ SCH ×4 (06:37→22:12)
[2019-01-18] MEDS: NORCO-5 PO PRN ×3 (06:41→22:18)
[2019-01-18] MEDS: ELIQUIS PO SCH ×2 (08:24→22:13)
[2019-01-18] MEDS: COZAAR PO SCH (08:24)
[2019-01-18] MEDS: LEXAPRO PO SCH (08:24)
[2019-01-18] MEDS: KLOR-CON PO SCH (08:24)
[2019-01-18] MEDS: LASIX PO SCH (08:25)
[2019-01-18] MEDS: TOPROL XL PO SCH (08:25)
[2019-01-18] MEDS: MUCOMYST 20% INH SCH ×2 (09:41→21:35)
[2019-01-18] MEDS: MIRAPEX PO SCH ×3 (10:24→17:02)
[2019-01-18] MEDS: LEVAQUIN 500 MG/D5W 500 MG/100 ML IVPB IV SCH (11:25)
--- NOTE | 2019-01-18 11:48 | PROGRESS NOTE ---
DATE: 01/18/2019 SUBJECTIVE: Ms. Shaffer's culture studies have been negative. Blood sugar was 288 this morning. Vital signs are normal. She was somewhat confused this morning. PLAN: We are repeating the chest x-ray on her and will check her electrolytes status and then decide probably tomorrow about discharge. -4 cc: MD Damon Perez MD
[2019-01-18] MEDS: VANCOMYCIN 1,400 MG in NS 250 ML IV SCH (17:02)
[2019-01-18] MEDS: ZOCOR PO SCH (22:13)
[2019-01-18] MEDS: DESYREL PO SCH (22:13)
[2019-01-18] MEDS: XANAX PO PRN (22:13)
[2019-01-18] MEDS: SINGULAIR PO SCH (22:14)
[2019-01-19] MEDS: CARAFATE LIQUID PO SCH ×4 (02:32→20:26)
[2019-01-19] MEDS: NITROGLYCERIN TOP SCH ×4 (02:33→20:19)
[2019-01-19] MEDS: DUONEB (A & A) INH SCH ×4 (05:08→21:20)
[2019-01-19 05:42] LABS: CALCIUM 8.7 mg/dL (8.8-10.2); CREATININE 0.9 mg/dL (0.5-0.9); POTASSIUM 4.2 mmol/L (3.5-5.1)
--- NOTE | 2019-01-19 06:19 | GASTROENTEROLOGY PROGRESS NOTE ---
DATE: 01/18/2019 SUBJECTIVE: Patient is awake and alert. Her daughter is at the bedside. Patient denies any further nausea or vomiting, but she just states that she does not have an appetite. She states she does not really like the food in the hospital. Otherwise, no significant complaints today. She is drinking her Glucerna shakes that are on her tray. OBJECTIVE: Vital Signs: Temperature 98.9 degrees, pulse 72, respirations 15, and blood pressure 141/53. T General: He patient is awake and alert in no acute distress. LABORATORY: Hematology WBC 11.03, hemoglobin 10.3, hematocrit 33.6, MCV 87.3, and platelets 257,000. Chemistries: Sodium 140, potassium 3.5, chloride 95, CO2 of 32, BUN 22, creatinine 0.8, and glucose 308. ASSESSMENT AND PLAN: 1. Nausea and vomiting has improved. 2. Pneumonia on antibiotics. 3. Atrial fibrillation on anticoagulation. 4. History of adenomatous polyp in the pylorus with polypectomy performed. Patient was recommended have a repeat EGD in 1 year which will be May of 2019. PLAN: Continue current medications. Continue PPI. Continue p.r.n. medications for nausea and vomiting. I believe patient may be discharged soon. I have recommend she follow up with us as an outpatient. She already has a scheduled appointment in January. Recommend she keep that appointment unless needed sooner. I have discussed this case with Dr. Viera. Dictated by COSME Valladares for Bryn Viera MD cc: COSME Pacheco MD Bharat K. Vakharia, MD
[2019-01-19] MEDS: SYNTHROID PO SCH (06:44)
[2019-01-19] MEDS: REGLAN PO SCH ×3 (06:44→15:08)
[2019-01-19] MEDS: SODIUM CHLORIDE 0.9% INJ SCH (06:45)
[2019-01-19] MEDS: HUMALOG SUBQ SCH ×4 (06:46→21:51)
[2019-01-19] MEDS: PROTONIX IV SCH (06:46)
[2019-01-19] MEDS: INVOKANA PO SCH (06:58)
[2019-01-19] MEDS: MUCOMYST 20% INH SCH ×2 (09:54→21:20)
--- NOTE | 2019-01-19 10:32 | Diag Imaging Result Doc PS360 ---
EXAM: CHEST-2 VIEWS 01/19/2019 HISTORY: CHF TECHNIQUE: PA and lateral chest COMMENT: Compared to 01/15/2019 the heart size appears smaller and the parahilar opacity which was present previously has diminished. There is still some platelike appearing opacity in the lingula which was present previously. IMPRESSION: Improved pulmonary edema and cardiomegaly. Atelectasis versus pneumonia in the lingula and left lower lobe. Electronically signed by Antonio Watkins 01/19/2019 10:30 AM
[2019-01-19] MEDS: CLINIMIX E 4.25%-5% SOLUTION 1,000 ML IV SCH (10:45)
[2019-01-19] MEDS: LEVAQUIN 500 MG/D5W 500 MG/100 ML IVPB IV SCH (10:49)
[2019-01-19] MEDS: ELIQUIS PO SCH ×2 (10:51→20:18)
[2019-01-19] MEDS: KLOR-CON PO SCH (10:51)
[2019-01-19] MEDS: LEXAPRO PO SCH (10:51)
[2019-01-19] MEDS: MIRAPEX PO SCH ×3 (10:51→17:23)
[2019-01-19] MEDS: LASIX PO SCH (10:52)
[2019-01-19] MEDS: TOPROL XL PO SCH (10:53)
[2019-01-19] MEDS: COZAAR PO SCH (10:53)
--- NOTE | 2019-01-19 12:12 | PROGRESS NOTE ---
DATE: 01/19/2019 SUBJECTIVE: Ms. Shaffer still has some pulmonary congestion. Her electrolytes are normal. BUN is 24, creatinine 0.9. Blood sugar is still elevated. It was 280 and 271. Blood cultures so far have been negative. OBJECTIVE: Vital Signs: Stable. Lungs: Still reveal some pulmonary congestion bilaterally. PLAN: Chest x-ray has been ordered. It has not been done yet this morning, and we are waiting for the results before we can discharge her. We will also start physical therapy on her. cc: MD Damon Perez MD
[2019-01-19] MEDS: XANAX PO PRN ×2 (15:08→20:18)
[2019-01-19] MEDS ORDERED: VANCOMYCIN 1,750 MG in NS 250 ML IV SCH (17:00)
[2019-01-19] MEDS: NORCO-5 PO PRN (17:32)
[2019-01-19] MEDS: SINGULAIR PO SCH (20:18)
[2019-01-19] MEDS: ZOCOR PO SCH (20:18)
[2019-01-19] MEDS: DESYREL PO SCH (20:19)
[2019-01-20] MEDS: XANAX PO PRN (00:04)
[2019-01-20] MEDS: CARAFATE LIQUID PO SCH ×2 (01:35→08:52)
[2019-01-20] MEDS: NITROGLYCERIN TOP SCH ×2 (01:35→08:52)
[2019-01-20] MEDS: DUONEB (A & A) INH SCH (03:40)
[2019-01-20] MEDS: CLINIMIX E 4.25%-5% SOLUTION 1,000 ML IV SCH (06:29)
[2019-01-20] MEDS: PROTONIX IV SCH (06:37)
[2019-01-20] MEDS: HUMALOG SUBQ SCH ×2 (06:38→11:44)
[2019-01-20] MEDS: INVOKANA PO SCH (06:38)
[2019-01-20] MEDS: REGLAN PO SCH ×2 (06:39→11:45)
[2019-01-20] MEDS: SYNTHROID PO SCH (06:39)
[2019-01-20] MEDS: KLOR-CON PO SCH (08:52)
[2019-01-20] MEDS: ELIQUIS PO SCH (08:52)
[2019-01-20] MEDS: LEXAPRO PO SCH (08:52)
[2019-01-20] MEDS: COZAAR PO SCH (08:52)
[2019-01-20] MEDS: TOPROL XL PO SCH (08:52)
[2019-01-20] MEDS: LASIX PO SCH (08:52)
[2019-01-20] MEDS ORDERED: MIRAPEX PO SCH (09:00)
[2019-01-20] MEDS: LEVAQUIN 500 MG/D5W 500 MG/100 ML IVPB IV SCH (10:35)
[2019-01-20] MEDS: NORCO-5 PO PRN (10:35)
[2019-01-20 12:12] VITALS: BP 106/76
--- NOTE | 2019-01-20 14:28 | PROGRESS NOTE ---
DATE: 01/20/2019 Ms. Shaffer is feeling better. Her lungs sound much better. Blood sugar was 301. Chest x-ray shows improvement. Vital signs are stable. Abdomen is soft, nontender. She wants to go home. We will get her home health and continue the same medications that she is on. She was hospitalized with delirium. She has diabetes, hypothyroidism, chronic back pain, cirrhosis of the liver, and hypertension. Continue with the current management at home. -1 cc: MD Damon Perez MD
--- NOTE | 2019-01-20 21:40 | GASTROENTEROLOGY PROGRESS NOTE ---
DATE: 01/20/2019 SUBJECTIVE: The patient is awake and alert. Her daughter is at the bedside. She denies complaints today. She is hoping to be discharged this weekend. I believe Dr. Crow is instructional media services technician for Dr. Jennings. The patient denies nausea or vomiting. She does state she does not have a good appetite and she does not like the hospital food, but other than that she is tolerating her diet. OBJECTIVE: Vital signs: Temperature 97.4 degrees, pulse 87, respirations 22, blood pressure 144/54. Generally the patient is awake and alert, in no acute distress. LABORATORY DATA: No labs done today. ASSESSMENT: 1. Nausea and vomiting has improved. 2. Pneumonia, on antibiotics. 3. Atrial fibrillation, on anticoagulation. 4. History of adenomatous polyp in the pylorus with polypectomy performed, and recommended repeat esophagogastroduodenoscopy in 05/2019. PLAN: Continue current medications. Continue PPI. Continue p.r.n. medications for nausea and vomiting, but that seems to have resolved. GI will currently sign off. The patient has an office visit already scheduled in January. Recommend patient keep that appointment. I have discussed this case with Dr. Viera. Dictated by COSME Valladares for Bryn Viera MD cc: COSME Pacheco MD Bharat K. Vakharia, MD MTDD
--- NOTE | 2019-02-28 09:11 | DISCHARGE SUMMARY ---
ADMISSION DATE: 01/09/2019 DISCHARGE DATE: 01/20/2019 FINAL DISCHARGE DIAGNOSES: 1. Left lower lobe pneumonia. 2. Delirium. 3. Uncontrolled diabetes mellitus. 4. Cirrhosis of the liver. 5. Hypothyroidism. 6. Chronic low back pain. 7. Gastritis and reflux disease. 8. Gastroparesis. 9. Hypertension. HISTORY: Ms. Shaffer is an 83-year-old white female patient with multiple medical problems in the form of longstanding diabetes, hypertension, COPD, cirrhosis of the liver, and chronic pain. She was not doing well for a week. The patient had increasing confusion, disorientation, feverish feeling, and chills. Also had a cough with brown expectoration. Chills, increasing confusion, and disorientation. I evaluated patient in the office and admitted for further care. HOSPITAL COURSE: The patient was treated with IV antibiotics, symptomatic treatment, and supportive care. The patient had complex hospital course. GI consult obtained with Dr. Viera. Recommendation noted. The patient's recovery was very slow. The patient had persistent nausea and vomiting. We did try different medications, including Zofran and Reglan. The patient was treated with IV antibiotics and supportive care. Her clinical condition gradually improved. The patient was eager to go home and she was discharged home on January 20 in satisfactory condition with home health. LABORATORY AND X-RAY DATA: Her lab data revealed last BUN was 24, creatinine 0.9, sodium 135, vancomycin level was 8.6. Last WBC count 11.03, hemoglobin 10.3, hematocrit 33.6, platelet count was 257,000. Chest x-ray done on January 19 did reveal improved pulmonary edema and cardiomegaly, atelectasis versus pneumonia in the lingula and left lower lobe. Patient had CT scan of the abdomen and pelvis done on January 12, which revealed bilateral pleural effusion and bibasilar atelectasis, fluid in the vagina, and slightly distended urinary bladder. The patient had an echocardiogram done, which revealed ejection fraction of 62, no wall motion abnormality, and no evidence of diastolic dysfunction. Results reviewed. Discussed with patient and daughter. Blood culture was negative. Sputum revealed normal beronica. CONDITION ON DISCHARGE: Overall discharge condition satisfactory. DISCHARGE INSTRUCTIONS: Advised patient to monitor blood sugar at home, take medicine regularly, follow up with me as scheduled, and, in case of more distress, call us back or go to emergency room. cc: Damon Jennings MD
== END 2019-01-20 14:31 | disposition home health service (06) | DRG 194 ==
LOC: DIRADM → OBSVTOIN 09:21 → 1N 09:53
PROVIDERS: ADMIT Internal Medicine; ATTEND Internal Medicine